=== PATIENT | female | born 1945 | race Caucasian/White ===

== ENCOUNTER 2019-01-07 08:18 | Outpatient (CLI) | payer OTHER, SELFPAY ==
[2019-01-07 09:56] LABS: ALT 20 U/L (12-78); AST 15 U/L (15-37); Albumin 3.4 g/dL (3.4-5.0); Alkaline Phosphatase 89 U/L (46-116); Anion Gap 9.6 mmol/L (3-11); BUN 21 mg/dL (7-18); Bilirubin, Total 0.2 mg/dL (0.2-1.0); CO2 28.4 mmol/L (21.0-32.0); Calcium 8.4 mg/dL (8.5-10.1); Chloride 104 mmol/L (98-107); Cholesterol 178 mg/dL (50-200); Glucose 97 mg/dL (70-100); HDL Cholesterol 48 mg/dL (40-60); LDL CHOLESTEROL 111 mg/dL (<100); Potassium 3.9 mmol/L (3.5-5.1); Sodium 142 mmol/L (136-145); Total Protein 7.1 g/dL (6.4-8.2); Triglyceride 79 mg/dL (30-150)
== END 2019-01-07 08:38 ==
PROVIDERS: PCP Nurse Practitioner Family; Visit Provider Nurse Practitioner Family
DX: E78.5 Hyperlipidemia, unspecified (principal)
CPT/HCPCS: 36415; 80053; 80061; 83721; 83036

== ENCOUNTER 2019-01-13 01:13 | Outpatient (CLI) | payer OTHER, SELFPAY ==
--- NOTE | 2019-01-13 11:30 | DI.MAMMO_ITS ---
SYMPTOMS/DIAGNOSIS: SCREENING, Z12.31 MAMMOGRAM: Mammograms were interpreted according to the usual protocol including computer analysis with CAD system, tomosynthesis and C view imaging. Comparison with prior examinations. Breast density C. No suspicious microcalcifications are seen. No focal masses are appreciated. There are focal asymmetric densities seen. One in the lateral aspect of the left breast on the craniocaudad and one in the posterior inferior aspect of the right breast on the mediolateral oblique view. These areas should be further evaluated with spot compression views. Ultrasound may be indicated at that time. IMPRESSION: Bilateral additional views as described above. Category 0. MQSA ASSESSMENT OF FINDINGS: Incomplete: Needs additional imaging evaluation. Category 0. Patient will receive a letter notifying them of these results. Bi-RADS category C. The breasts are heterogeneously dense, which may obscure small masses.
== END 2019-01-13 01:33 ==
PROVIDERS: PCP Nurse Practitioner Family; Visit Provider Nurse Practitioner Family
DX: Z12.31 Encounter for screening mammogram for malignant neoplasm of breast (principal); R92.8 Other abnormal and inconclusive findings on diagnostic imaging of breast
CPT/HCPCS: 77063; 77067

== ENCOUNTER 2019-01-18 01:21 | Outpatient (CLI) | payer OTHER, SELFPAY ==
--- NOTE | 2019-01-18 13:58 | DI.COMBO_ITS ---
SYMPTOMS/DIAGNOSIS: F/U ABNORMAL MAMMO, FOCAL ASYMMETRIC DENSITIES BILATERALLY ADDITIONAL MAMMOGRAPHIC VIEWS OF BOTH BREASTS AND BILATERAL BREAST ULTRASOUND: CC spot compression film of the left breast and MLO compression spot of the right breast were performed. No discrete nodule or mass is demonstrated on these follow-up images. An ultrasound was carried out. The examination of the left breast is unremarkable with no cyst or mass seen. In the right breast, there is a 5 x 6 x 6 mm area of nodularity demonstrated and is avascular and could well represent a small fibroadenoma. A follow-up right breast ultrasound and mammogram in six months is suggested for further review. SUMMARY: Category 3, breast density category C. MQSA ASSESSMENT OF FINDINGS: Probably benign. Six month follow-up recommended. Category 3. Patient will receive a letter notifying them of these results. Bi-RADS category C. The breasts are heterogeneously dense, which may obscure small masses.
== END 2019-01-18 01:41 ==
PROVIDERS: PCP Nurse Practitioner Family; Visit Provider Nurse Practitioner Family
DX: Z12.31 Encounter for screening mammogram for malignant neoplasm of breast (principal); R92.8 Other abnormal and inconclusive findings on diagnostic imaging of breast
CPT/HCPCS: 76642; 77063; 77067

== ENCOUNTER 2019-07-19 01:10 | Outpatient (CLI) | payer OTHER, SELFPAY ==
--- NOTE | 2019-07-19 10:06 | DI.MAMMO_ITS ---
EXAM: MG MAMMO DIAGNOSTIC UNI CLINICAL HISTORY: 6-MO F/U ABNL RT MAMMO, R92.8 TECHNIQUE: Mammograms were interpreted according to the usual protocol including computer analysis w ith CAD system, tomosynthesis and C-view imaging. COMPARISON: 2009 through 01/18/19. FINDINGS: This is a six-month follow-up from 18 January 2019 for 2 areas of nodularity, seen in the right breast. There are 2 stable areas of nodularity, 1 in the inferior right breast and the other in the superio r right breast more posteriorly. These have been stable over time and have the appearance of normal intra mammary lymph nodes. No new or suspicious findings are seen. IMPRESSION: BI-RADS category 2, negative mammogram with benign findings. Bilateral screening should be resumed in 6 months. BI-RADS Cat 2 - Benign Findings. Breast Density - Category C - Heterogeneously dense.
== END 2019-07-19 01:30 ==
PROVIDERS: PCP Nurse Practitioner Family; Visit Provider Nurse Practitioner Family
DX: Z12.31 Encounter for screening mammogram for malignant neoplasm of breast (principal); R92.8 Other abnormal and inconclusive findings on diagnostic imaging of breast; N60.81 Other benign mammary dysplasias of right breast; R59.0 Localized enlarged lymph nodes
CPT/HCPCS: 77061; 77065; G0279

== ENCOUNTER 2020-02-17 03:26 | Outpatient (CLI) | payer OTHER, SELFPAY ==
[2020-02-17 08:08] LABS: HCT 24.9 % (36.0-46.0); Mean Corp. HGB Concentration 26.5 g/dL (32.0-36.0); Mean Corpuscular Hemoglobin 18.6 pg (27.0-33.0); Mean Corpuscular Volume 70.3 fL (80-95); Mean Platelet Volume 8.5 fL (8.0-11.0); Platelet Count 318 x1000/uL (130-400); RBC 3.54 m/cumm (4.00-5.20); RBC Distribution Width 19.1 % (11.7-14.6); White Blood Cell Count 5.93 k/cumm (4.4-10.8)
[2020-02-17 08:36] LABS: HGB 6.6 g/dL (12.0-15.5)
[2020-02-17 08:41] LABS: Anion Gap 6.9 mmol/L (3-11); BUN 23 mg/dL (7-18); CO2 28.1 mmol/L (21.0-32.0); CREATININE 0.79 mg/dL (0.55-1.02); Calcium 8.7 mg/dL (8.5-10.1); Calculated LDL 81 mg/dL (<100); Chloride 102 mmol/L (98-107); Cholesterol 142 mg/dL (<200); Glucose 102 mg/dL (74-106); HDL Cholesterol 42 mg/dL (40-60); Potassium 4.5 mmol/L (3.5-5.1); Sodium 137 mmol/L (136-145); Triglyceride 97 mg/dL (<150)
[2020-02-17 08:50] LABS: Hemoglobin A1C 5.7 % (3.8-5.6)
[2020-02-17 14:03] LABS: Iron 22 ug/dL (50-170); Total Iron Binding Capacity 419 ug/dL (250-450)
[2020-02-17 14:16] LABS: Ferritin 7 ng/mL (8-252)
[2020-02-20 10:51] LABS: Transferrin 321 mg/dL (201-352)
== END 2020-02-17 03:46 ==
PROVIDERS: PCP Nurse Practitioner Family; Visit Provider Nurse Practitioner Family
DX: R06.00 Dyspnea, unspecified (principal); R73.03 Prediabetes; I10 Essential (primary) hypertension; D64.9 Anemia, unspecified
CPT/HCPCS: 36415; 80048; 80061; 85027; 82728; 83036; 83540; 83550; 84466

== ENCOUNTER 2020-02-21 01:42 | Outpatient (CLI) | payer OTHER, SELFPAY ==
--- NOTE | 2020-02-21 07:15 | DI.DEXA_ITS ---
EXAM: XR DEXA BONE DENSITY W/WO YUNIER CLINICAL HISTORY: osteopenia, last dexa 2011,M85.0,POSTMENOPAUSAL WOMAN,Z78.0 TECHNIQUE: COMPARISON: CR LUMBAR SPINE COMPLETE from 09/22/2012 FINDINGS: DEXA scan was performed according to the usual protocol. Please see the accompanying data sheets. The lateral vertebral scanogram shows minimal wedging of mid thoracic vertebral bodies, this may be o n a developmental basis or may reflect minimal compression fractures. Left hip scanning shows T-score -1.1 with left femoral neck T-score -2.1. Prior study of November 2011 showed left hip T-score -0.9. Lumbar spine scanning shows T-score 1.1. Prior study 2011 shows lumbar T spine score 0.4. Left forearm scanning shows T-score -1.4. Prior study of 29/07 showed forearm T-score -0.3. IMPRESSION: Findings consistent with osteopenia according to the WHO criteria. Lateral vertebral scanogram shows probable minimal anterior compression fractures of midthoracic vertebral bodies.
--- NOTE | 2020-02-21 07:15 | DI.MAMMO_ITS ---
EXAM: MG MAMMO SCREENING CLINICAL HISTORY: screening,Z12.39 TECHNIQUE: Mammograms were interpreted according to the usual protocol including computer analysis w [facility] CAD system, tomosynthesis and C-view imaging. COMPARISON: FINDINGS: Breasts are heterogeneously dense. No dominant mass or clumped microcalcification is identified in e ither breast. The current examination is compared with previous examinations including January 2019 and there has been no gross interval change in appearance comparison with previous studies. IMPRESSION: No specific evidence of malignancy at this time. Routine screening examinations are suggested at yea rly intervals in this age group according to the ACS ACR guidelines. BI-RADS Category 1 - Negative Breast Density - Category C - Heterogeneously dense
--- NOTE | 2020-02-21 10:07 | DI.RAD_ITS ---
EXAM: XR CHEST 2V PA LATERAL CLINICAL HISTORY: SPIVEY x 9mo,R06.00 TECHNIQUE: COMPARISON: No exams were available for comparison FINDINGS: The heart is not enlarged. Note is made of a retrocardiac hiatus hernia lungs are clear. No pleural effusion seen. IMPRESSION: No evidence of acute disease.
--- NOTE | 2020-02-21 10:15 | DI.US_ITS ---
APPROVED REPORT EXAM: Comprehensive 2D, Doppler, and color-flow Echocardiogram Patient Location: Out-Patient Urologist Physician: Deena Lopez RDCS (AE) Indications: SPIVEY, Murmur Other Information Study Quality: Adequate Conclusion Normal left ventricular wall thickness and chamber size. Estimated ejection fraction is 55 to 60%. There are no segmental wall motion abnormalities Normal right ventricular size and function Both atria are normal in size The aortic valve is trileaflet. There is no stenosis or regurgitation Mitral valve is structurally normal. There is mild to moderate mitral regurgitation The tricuspid valve is structurally normal. There is mild tricuspid regurgitation. Estimated right ventricular systolic pressure is 33 mmHg Structurally normal pulmonic valve with mild regurgitation Wall motion Left Ventricle The left ventricle is normal size. The left ventricular systolic function is normal. The left ventric ular ejection fraction is within the normal range. There is normal left ventricular wall thickness. T here is normal LV segmental wall motion. There is no ventricular septal defect visualized. LVEF is 55 %.-60% Right Ventricle The right ventricle is normal size. The right ventricular systolic function is normal. The RVSP is 33 .3mmHg. Atria The left atrium size is normal. The right atrium size is normal. The interatrial septum is intact wit h no evidence for an atrial septal defect. Aortic Valve Aortic valve is trileaflet. There is no aortic valvular stenosis. No aortic regurgitation is present. Mitral Valve The mitral valve is normal in structure. No evidence of mitral valve stenosis. Mild to moderate mayo l regurgitation. Tricuspid Valve The tricuspid valve is normal in structure. There is no tricuspid valve stenosis. Mild tricuspid regu rgitation. Pulmonic Valve The pulmonary valve is normal in structure. There is no pulmonic valvular stenosis. Mild pulmonic reg urgitation. Great Vessels The aortic root is normal in size. The ascending aorta is normal in size. IVC is normal in size and c ollapses >50% with inspiration. Pericardium There is no pericardial effusion. 2D Dimensions IVSD d PLAX 0.73 cm F: 0.6-1.0 LV Vol A2C d MOD 93.7 mL LVPW d PLAX 0.75 cm F: 0.6 - 1.0 LV Vol A4C d MOD 98.2 mL LVID d PLAX 4.71 cm F: 3.8 - 5.2 LA vol/ BSA A2C s A-L 35.5 mL/m2 LVDs 3.05 cm F: 2.2 - 3.5 LA vol/ BSA A4C s A-L 35.8 mL/m2 Ao Root d 2.93 cm F: 2.7 - 3.3 LA Vol/ BSA Biplane s A-L 36.0 mL/m2 RA Area A4C 14.45 cm2 LA Area A4C s MOD 20.59 cm2 RA Vol/ BSA A4C s A-L 17.6 mL/m2 LA Area A2C s MOD 20.33 cm2 Ao Asc Diam d 3.13 cm F: 2.3 - 3.1 LV EF A4C MOD 55.3 % LV EF Teichholz 64.2 % LV EF A2C MOD 56.5 % LVEF (Rogers's) 54.68 % F: 54 - 74 LV EF Biplane MOD 54.7 % LV Volume 75.90 mL F: 46 - 106 SV 52.69 mL LV Volume Index 43.62 mL/m2 F: 29 - 61 SV Index 30.31 mL/m2 LV Vol Biplane MOD 96.4 mL FS 34.90 % M-Mode TAPSE 2.19 cm (M/F) >1.7 LV Diastology MV E' medial 0.079 (>0.07 m/s) E/A Ratio 0.9 LV E/e MED 11.10 (<14) MV E Vmax 0.88 (0.4-1.3 m/s) MV E' lateral 0.095 (>0.1 m/s) MV A Vmax 1.00 (0.4-1.3 m/s) LV E/e LAT 9.25 (<14) MV E/A Ratio 0.85 MV E/E' medial 11.12 MV E/E' lateral 9.27 Aortic Valve LVOT Area 2.91 cm2 AoV Area Vmax 1.74 cm2 LVOT Vmax 1.19 m/s AoV Area/ BSA (Vmax) 1.00 cm2/m2 LVOT Mean William. 0.78 m/s RICKEY Mean William. 1.59 cm2 LVOT Peak Grad 5.7 mmHg RICKEY Mean William. Index 0.92 cm2/m2 LVOT Mean Grad 2.9 mmHg LVOT VTI 0.283 m LVOT Diam s 1.90 cm AoV Vmax 1.99 m/s Velocity Ratio 0.59 AoV Mean William. 1.43 m/s AoV Peak Grad 15.9 mmHg LVOT SV 82.31 mL AoV Mean Grad 9.1 mmHg AoV VTI 0.464 m AoV Area VTI 1.78 cm2 AoV Area/ BSA (VTI) 1.02 cm/m2 Mitral Valve MV DT 203 (160-240 msec) MV PHT 59 msec MV Area PHT 3.74 cm2 Pulmonary Valve PV Vmax 1.06 (0.5-1.5 m/s) RVOT Peak Gr. 3.25 mmHg PV Peak Grad 4.5 mmHg RVOT Mean Gr. 1.95 mmHg PV Mean Grad 2.8 mmHg RVOT VTI 0.197 m PV VTI 0.239 m RVOT Vmax 0.90 m/s Tricuspid Valve TR Peak Grad 30.3 mmHg TR Vmax 2.75 m/s RA Pressure 3.00 mmHg RVSP (TR) 33.3 mmHg
== END 2020-02-21 02:02 ==
PROVIDERS: PCP Nurse Practitioner Family; Visit Provider Nurse Practitioner Family
DX: R06.09 Other forms of dyspnea (principal); R01.1 Cardiac murmur, unspecified; I34.0 Nonrheumatic mitral (valve) insufficiency; I10 Essential (primary) hypertension; R73.03 Prediabetes; M85.88 Other specified disorders of bone density and structure, other site; Z78.0 Asymptomatic menopausal state; Z12.31 Encounter for screening mammogram for malignant neoplasm of breast; K44.9 Diaphragmatic hernia without obstruction or gangrene
CPT/HCPCS: 77063; 77067; 77080; 93306; 71046

== ENCOUNTER 2020-02-21 03:48 | Outpatient (CLI) | payer OTHER, SELFPAY | END 2020-02-21 04:08 | PROVIDERS: PCP Nurse Practitioner Family; Visit Provider Nurse Practitioner Family | DX: R69 Illness, unspecified (principal) | CPT/HCPCS: 36415; 86850; 86900; 86901; 86920; 85025 ==

== ENCOUNTER 2020-02-23 01:43 | Outpatient (RCR) | payer OTHER, SELFPAY ==
[2020-02-21 11:18] LABS: Abs Immature Grans 0.01 k/cumm (0.0-0.09); Absolute Basophil Count 0.02 k/cumm (0.0-0.2); Absolute Eosinophil Count 0.11 k/cumm (0.0-0.7); Absolute Lymphocyte Count 1.19 k/cumm (1.2-3.4); Absolute Monocyte Count 0.36 k/cumm (0.11-0.7); Absolute Neutrophil Count 3.83 k/cumm (1.2-6.7); Basophils % 0.4; HCT 25.6 % (36.0-46.0); Immature Grans % 0.2 %; Lymphocytes % 21.6; Mean Corp. HGB Concentration 26.2 g/dL (32.0-36.0); Mean Corpuscular Hemoglobin 18.5 pg (27.0-33.0); Mean Corpuscular Volume 70.7 fL (80-95); Mean Platelet Volume 8.1 fL (8.0-11.0); Monocytes % 6.5; Neutrophils % 69.3; Platelet Count 315 x1000/uL (130-400); RBC 3.62 m/cumm (4.00-5.20); RBC Distribution Width 19.3 % (11.7-14.6); White Blood Cell Count 5.52 k/cumm (4.4-10.8)
[2020-02-21 11:29] LABS: HGB 6.7 g/dL (12.0-15.5)
[2020-02-21 11:39] LABS: Diff Comment RBC Morph Reviewed
[2020-02-21 11:45] LABS: Anisocytosis 1+; Hypochromasia 3+; Microcytosis 3+; Polychromasia Present
[2020-02-21 11:46] LABS: Poikilocytes 2+
[2020-02-23] VITALS (16 sets, daily range): BP systolic 112–146; BP diastolic 67–78; PULSE 66–80; RESP 18–20; TEMP 36–37; O2SAT 97–100
[2020-02-23] MEDS: Normal Saline Flush 10 ML SYR IVP (08:25)
== END 2020-03-09 23:59 | disposition home or self-care (01) ==
LOC: INF 01:43
PROVIDERS: PCP Nurse Practitioner Family; Visit Provider Nurse Practitioner Family
DX: D50.9 Iron deficiency anemia, unspecified (principal)
CPT/HCPCS: 36415; 36430; 86850; 86900; 86901; 86920; 85025; P9016

== ENCOUNTER 2020-02-29 03:59 | Outpatient (CLI) | payer OTHER, SELFPAY ==
[2020-02-29 16:36] LABS: Abs Immature Grans 0.01 k/cumm (0.0-0.09); Absolute Basophil Count 0.02 k/cumm (0.0-0.2); Absolute Eosinophil Count 0.14 k/cumm (0.0-0.7); Absolute Lymphocyte Count 1.44 k/cumm (1.2-3.4); Absolute Monocyte Count 0.48 k/cumm (0.11-0.7); Absolute Neutrophil Count 4.81 k/cumm (1.2-6.7); Basophils % 0.3; HCT 34.7 % (36.0-46.0); HGB 9.8 g/dL (12.0-15.5); Immature Grans % 0.1 %; Lymphocytes % 20.9; Mean Corp. HGB Concentration 28.2 g/dL (32.0-36.0); Mean Corpuscular Hemoglobin 21.1 pg (27.0-33.0); Mean Corpuscular Volume 74.6 fL (80-95); Mean Platelet Volume 8.9 fL (8.0-11.0); Neutrophils % 69.7; Platelet Count 309 x1000/uL (130-400); RBC 4.65 m/cumm (4.00-5.20); RBC Distribution Width 22.3 % (11.7-14.6)
[2020-02-29 18:07] LABS: Diff Comment RBC Morph Reviewed
[2020-02-29 18:08] LABS: Anisocytosis 3+; Macrocytosis 1+; Microcytosis 2+; Polychromasia Present
[2020-02-29 18:09] LABS: Poikilocytes 1+
[2020-02-29 18:10] LABS: Hypochromasia 1+
== END 2020-02-29 04:19 ==
PROVIDERS: PCP Nurse Practitioner Family; Visit Provider Nurse Practitioner Family
DX: D50.9 Iron deficiency anemia, unspecified (principal)
CPT/HCPCS: 36415; 85025

== ENCOUNTER → 2020-03-12 10:51 | Outpatient (BNVA) | payer OTHER, SELFPAY | PROVIDERS: PCP Nurse Practitioner Family; Referring Provider Nurse Practitioner Family; Visit Provider Surgery | DX: D50.8 Other iron deficiency anemias (principal); I10 Essential (primary) hypertension | CPT/HCPCS: 99202; 99203 ==

== ENCOUNTER 2020-04-23 03:18 | Outpatient (CLI) | payer OTHER, SELFPAY ==
[2020-04-23 11:24] LABS: HCT 42.2 % (36.0-46.0); MCH 27.7 pg (27.0-33.0); MCHC 30.8 % (32.0-36.0); MCV 89.8 fL (80-95); Platelet Count 210 10^3/uL (130-400); RDW-SD 75.7 fL; WBC 7.42 10^3/uL (4.4-10.8)
[2020-04-23 12:24] LABS: Total Iron Binding Capacity 294 ug/dL (250-450)
[2020-04-23 12:38] LABS: Ferritin 41 ng/mL (8-252)
== END 2020-04-23 03:38 ==
PROVIDERS: PCP Nurse Practitioner Family; Visit Provider Nurse Practitioner Family
DX: D50.9 Iron deficiency anemia, unspecified (principal)
CPT/HCPCS: 36415; 85027; 82728; 83550

== ENCOUNTER 2021-01-14 09:29 | Outpatient (CLI) | payer OTHER, SELFPAY ==
[2021-01-14 12:22] LABS: HCT 44.7 % (36.0-46.0); MCH 32.8 pg (27.0-33.0); MCHC 33.6 % (32.0-36.0); MCV 97.8 fL (80-95); MPV 9.8 fL (8.0-11.0); Platelet Count 207 10^3/uL (130-400); RBC 4.57 10^6/uL (3.93-5.22); RDW 12.2 % (11.7-14.6); WBC 5.23 10^3/uL (4.4-10.8)
[2021-01-14 12:29] LABS: Total Iron Binding Capacity 297 ug/dL (250-450)
[2021-01-14 12:34] LABS: Hemoglobin A1C 5.9 % (<5.7)
[2021-01-14 12:46] LABS: Anion Gap 7.6 mmol/L (3-11); BUN 26 mg/dL (7-18); CO2 29.4 mmol/L (21.0-32.0); CREATININE 0.8 mg/dL (0.55-1.02); Calcium 9.8 mg/dL (8.5-10.1); Chloride 106 mmol/L (98-107); Ferritin 69 ng/mL (8-252); Glucose 97 mg/dL (74-106); Potassium 4.4 mmol/L (3.5-5.1); Sodium 143 mmol/L (136-145)
== END 2021-01-14 09:30 | disposition home or self-care (01) ==
PROVIDERS: PCP Nurse Practitioner Family; Referring Provider Nurse Practitioner Family; Visit Provider Nurse Practitioner Family
DX: I10 Essential (primary) hypertension (principal); D50.9 Iron deficiency anemia, unspecified; R73.03 Prediabetes
CPT/HCPCS: 36415; 80048; 85027; 82728; 83036; 83550

== ENCOUNTER 2021-02-21 02:46 | Outpatient (CLI) | payer OTHER, SELFPAY ==
--- NOTE | 2021-02-21 08:20 | DI.MAMMO_ITS ---
Exam(s) MAMMO SCREENING EXAM: MAMMO SCREENING CLINICAL HISTORY: screening,z12.39. TECHNIQUE: Bilateral full field digital CC and MLO mammographic images were obtained with 3D tomosyn thesis and utilizing computer aided detection (CAD). COMPARISON: Prior mammograms dating back to 2011, the most recent being February 2020. FINDINGS: The fibroglandular tissue pattern is moderately dense, this decreasing the sensitivity of the mammogr am for finding in underlying lesions. Multiple noncalcified well-defined nodular densities in the right breast are unchanged from prior owen dies and therefore benign. There are no new spiculated masses nor malignant appearing microcalcification groups. There is no significant architectural distortion nor skin thickening-retraction. IMPRESSION: Stable benign findings. No radiographic evidence of malignancy. BI-RADS Category 2 - Benign Findings Breast Density - Category C - Heterogeneously dense Breast density Category C or D implies that the patient has dense breast tissue. Dense breast tissue can make it harder to find cancer on a mammogram. Dense breast tissue is also associated with an incr eased risk of breast cancer. This information about the result of the mammogram report was provided to the patient to raise their awareness. Use this report when you speak with the patient about their risks for breast cancer, which includes their family history. At that time, you may recommend additional screening tests (Ultrasoun d or MRI) as these tests may add significant information. A negative radiographic report should not delay biopsy if a dominant or clinically suspicious mass is present. Up to ten percent of cancers are not identified on mammography. A negative report may reinforce clinical impression. Adenosis and dense breasts may obscure an underlying neoplasm. False positive reports average 6 to 10%. Patient will receive a letter notifying them of these results.
== END 2021-02-21 03:06 ==
PROVIDERS: PCP Nurse Practitioner Family; Visit Provider Nurse Practitioner Family
DX: Z12.31 Encounter for screening mammogram for malignant neoplasm of breast (principal)
CPT/HCPCS: 77063; 77067

== ENCOUNTER → 2022-03-04 02:58 | Outpatient (CLI) | payer MEDICARE, SELFPAY ==
--- NOTE | 2022-03-04 07:00 | DI.MAMMO_ITS ---
Exam(s) MAMMO SCREENING EXAM: MAMMO SCREENING CLINICAL HISTORY: screening, Z12.39 TECHNIQUE: Bilateral full field digital CC and MLO mammographic images were obtained with 3D tomosyn thesis and utilizing computer aided detection (CAD). COMPARISON: Available for comparison. FINDINGS: Masses/Architectural Distortion: There is a new opacity in the posterior central right breast on the MLO view. Microcalcifications: No suspicious pleomorphic-type are seen. Skin Thickening/Nipple Retraction: None. IMPRESSION: 1. New opacity in the posterior central right breast on the MLO view. 2. Spot compression view and ultrasound are recommended for further evaluation. BI-RADS Category 0 - Assessment Incomplete: Need additional imaging evaluation Breast Density - Category C - Heterogeneously dense Breast density category C or D implies that the patient has dense breast tissue. Dense breast tissue is very common and is not abnormal but dense breast tissue can make it harder to find cancer on a ma mmogram. Also, dense breast tissue may increase their breast cancer risk. This information about the result of the mammogram report was provided to the patient to raise their awareness. Use this report when you speak with the patient about their risks for breast cancer, which includes their family hist ory. At that time, you may recommend for more screening tests (Ultrasound or MRI) as they might be us eful based on their risk. A negative radiographic report should not delay biopsy if a dominant or clinically suspicious mass is present. Up to ten percent of cancers are not identified on mammography. A negative report may reinforce clinical impression. Adenosis and dense breasts may obscure an underlying neoplasm. False positive reports average 6 to 10%. Patient will receive a letter notifying them of these results.
== END ==
PROVIDERS: PCP Nurse Practitioner Family; Visit Provider Nurse Practitioner
DX: Z12.31 Encounter for screening mammogram for malignant neoplasm of breast (principal); R92.8 Other abnormal and inconclusive findings on diagnostic imaging of breast
CPT/HCPCS: 77063; 77067

== ENCOUNTER → 2022-03-10 01:41 | Outpatient (CLI) | payer MEDICARE, SELFPAY ==
--- NOTE | 2022-03-10 | DI.US_ITS ---
Exam(s) MG MAMMO SCREEN CALL BACK UNI US BREAST RT COMPLETE EXAM: MG MAMMO SCREEN CALL BACK UNI CLINICAL HISTORY: F/U MAMMO, NEW OPACITY RT BREAST TECHNIQUE: Mammograms were interpreted according to the usual protocol including computer analysis w ith CAD system, tomosynthesis and C-view imaging. COMPARISON: FINDINGS: Additional mammographic views of the right breast and right breast ultrasound are interpreted in conj unction. These examinations were obtained to evaluate questionable area of nodularity projected in t he central portion of the right breast on MLO view of recent mammogram. Additional mammographic view s fail to show a discrete mass. Breast ultrasound shows no evidence of a mass or cyst. IMPRESSION: No specific evidence of malignancy at this time. Follow-up unilateral right breast mammogram recomme nded in 6 months. BI-RADS Category 3 - 6 month - Probably Benign Finding: Recommend follow-up mammography in 6 months Breast Density - Category B - Scattered areas of fibroglandular density
== END ==
PROVIDERS: PCP Nurse Practitioner Family; Visit Provider Nurse Practitioner
DX: R92.8 Other abnormal and inconclusive findings on diagnostic imaging of breast (principal); Z12.31 Encounter for screening mammogram for malignant neoplasm of breast
CPT/HCPCS: 76642; 77063; 77067

== ENCOUNTER 2022-06-03 02:24 | Outpatient (CLI) | payer MEDICARE, SELFPAY ==
[2022-06-03 08:47] LABS: Anion Gap 8.5 mmol/L (3-11); BUN 21 mg/dL (7-18); CO2 29.5 mmol/L (21.0-32.0); CREATININE 0.7 mg/dL (0.55-1.02); Calcium 9.1 mg/dL (8.5-10.1); Calculated LDL 97 mg/dL (<100); Chloride 104 mmol/L (98-107); Cholesterol 174 mg/dL (<200); Estimated GFR 90.14 (mL/min/1.73m2); Glucose 99 mg/dL (74-106); HDL Cholesterol 54 mg/dL (40-60); Potassium 3.7 mmol/L (3.5-5.1); Sodium 142 mmol/L (136-145); Triglyceride 118 mg/dL (<150)
[2022-06-03 12:22] LABS: Hemoglobin A1C 6.1 % (<5.7)
== END 2022-06-03 02:25 | disposition home or self-care (01) ==
LOC: LBO 02:24
PROVIDERS: PCP Nurse Practitioner Family; Visit Provider Nurse Practitioner
DX: R73.03 Prediabetes (principal); E78.5 Hyperlipidemia, unspecified; I10 Essential (primary) hypertension
CPT/HCPCS: 36415; 80048; 80061; 83036

== ENCOUNTER 2022-07-19 23:09 | Emergency (ER) | payer MEDICARE, SELFPAY ==
--- NOTE | 2022-07-19 23:00 | RT.EKG_ITS ---
APPROVED REPORT Exam: Resting ECG Reason for Exam: chest pain Patient Location: E HR:91 bpm ECG Measurements Heart Rate 91 AXIS [place] 136 P 17 QRSd 80 QRS 47 QT 348 T 49 QTc 428 Conclusion Sinus rhythm...normal P axis, V-rate 60- 99 Physician: no stemi
[2022-07-19 23:14] VITALS: BP 161/85; PULSE 93; RESP 18; TEMP 37; O2SAT 97
--- NOTE | 2022-07-19 23:15 | DI.RAD_ITS ---
Exam(s) XR CHEST 2V PA LATERAL EXAM: XR CHEST 2V PA LATERAL CLINICAL HISTORY: chest pain TECHNIQUE: 2D digital imaging was performed of the chest. Two images were obtained. PA and lateral views were obtained. COMPARISON: CR XR CHEST 2V PA LATERAL from 02/21/2020 FINDINGS: MEDIASTINUM: There is a large hiatal hernia present. HEART: Normal. PULMONARY VASCULATURE: Normal. LUNGS: Clear. PLEURAL SPACE: No pleural effusion or pneumothorax. BONE:Within normal limits for the patient's age. OTHER FINDINGS:Normal. IMPRESSION: 1. No acute pulmonary findings. 2. Large hiatal hernia. Please see the CT scan report of the abdomen and pelvis performed the same d ay. DATA REPOSITORY: RADIATION DOSE DELIVERED:
--- NOTE | 2022-07-19 23:15 | ED.GENADUL_ITS ---
Discharge Plan Discharge Details Chief Complaint: Chest Pain Primary Care Provider: Virgie Johnston ED Provider: Julio Salas Home Meds and New Rx's Prescriptions: No Action aspirin 81 mg tablet,delayed release (DR/EC) 81 mg PO DAILY ferrous sulfate 325 mg (65 mg iron) tablet 325 mg PO DAILY Rx Instructions: Take 1 tablet twice a day with your vitamin c multivitamin [One Daily] 1 EACH tablet 1 tab PO DAILY ascorbic acid (vitamin C) [Vitamin C] 500 MG tablet 500 mg PO DAILY atorvastatin [Lipitor] 10 mg tablet 10 mg PO HS Qty: 90 3RF lisinopril 10 mg tablet 10 mg PO DAILY Qty: 90 0RF hydrochlorothiazide 25 mg tablet 12.5 mg PO QAM Qty: 45 0RF Medical Decision Making This is a 76-year-old female with a past medical history of hypertension, mitral valve regurgitation, hyperlipidemia, anemia, presented to the ER for what she describes as intermittent heartburn and indigestion throughout the day as well as URI-like symptoms over the past several days. Current symptoms 2 out of 10 chest burning. She took a baby aspirin. Tums has not helped. Plan to initiate a cardiac work-up, give an additional 3 baby aspirin, provide 30 cc of Mylanta. Differential includes but not excluded to heartburn, ACS, PE, dissection, flu, COVID, pneumonia, etc. We will also obtain a COVID, flu, RSV swab. This documentation was generated using [employer] dictation system, please disregard any oddities of phrase or misspellings. Medical Records Medical records reviewed: Yes I reviewed the patient's medical records. ECG Data Attestation: I personally reviewed and interpreted this ECG (s) as follows: Interpretation: Sinus rhythm, ventricular 91. No STEMI. Sign Out Yes HPI General Mode of arrival: ambulatory . Date/Time Provider Initiated Documentation: 07/19/22 23:12 . Limitations to Documentation: no limitations . Information obtained by: patient . HPI Narrative: This is a 76-year-old female with a past medical history of hypertension, hy perlipidemia, mitral valve regurgitation, presenting to the ER where she described as chest burning indigestion that has been intermittent since this afternoon. Patient states that this sometimes happens, say every 6 months or so, with overeating and typically 2 times resolve the problem. She states that she did not overeat today and Tums did not help her symptoms. She states that she has burped a couple of times and tasted a sour taste in her mouth. Patient states earlier today she felt a gas bubble in her back but that resolved completely. She denies the pain radiating anywhere. She states that when she walks around upright the symptoms seem to improve a little bit. Patient also reports URI-like symptoms for the past couple of days, mild dry cough, runny nose. She denies headache, fever, shortness of breath, abdominal pain, nausea, vomiting, change in bowel or bladder function, numbness, tingling, weakness, fluid retention, skin rash. She has never had a stress test. She is not a smoker and has never been a smoker. She took a baby aspirin today. Current burning is a 2 out of 10, max today 8 out of 10 Related Data Home Medications Medication Instructions Recorded Confirmed ascorbic acid (vitamin C) 500 mg 500 mg PO DAILY 11/03/12 01/16/22 tablet (Vitamin C) multivitamin (One Daily tablet) 1 tab PO DAILY 11/03/12 01/16/22 aspirin 81 mg tablet,delayed 81 mg PO DAILY 01/15/20 01/16/22 release ferrous sulfate 325 mg (65 mg 325 mg PO DAILY 01/16/22 01/16/22 iron) tablet atorvastatin 10 mg tablet (Lipitor) 10 mg PO HS #90 tab-caps 04/23/22 hydrochlorothiazide 25 mg tablet 12.5 mg PO QAM #45 tabs 04/23/22 lisinopril 10 mg tablet 10 mg PO DAILY #90 tab-caps 04/23/22 Previous Rx's Medication Instructions Recorded atorvastatin 10 mg tablet (Lipitor) 10 mg PO HS #90 tab-caps 04/23/22 hydrochlorothiazide 25 mg tablet 12.5 mg PO QAM #45 tabs 04/23/22 lisinopril 10 mg tablet 10 mg PO DAILY #90 tab-caps 04/23/22 Allergies Allergy/AdvReac Type Severity Reaction Status Date / Time No Known Allergies Allergy Unverified 01/14/21 08:56 Review of Systems Constitutional Constitutional: Denies fatigue, Denies fever(s), Denies headache(s) and Denies weakness ENT Ears, Nose, Mouth, and Throat: Denies headache(s) and Denies neck pain Cardiovascular Cardiovascular: Reports chest pain (Burning) and Denies dyspnea Respiratory Respiratory: Denies cough and Denies dyspnea Gastrointestinal Gastrointestinal: Denies abdominal pain, Denies nausea and Denies vomiting Musculoskeletal Musculoskeletal: Reports back pain and Denies neck pain Integumentary/Breasts Skin/Breast: Denies rash Neurologic Neurologic: Denies headache(s) and Denies weakness Endocrine Endocrine: Denies fatigue Hematologic/Lymphatic Hematologic/Lymphatic: Denies easy bleeding and Denies easy bruising PFSH All Active Problems Osteoarthritis of knees, bilateral (Acute) Mitral valve regurgitation (Chronic) ECHO 2020 Iron deficiency anemia (Acute) Essential hypertension (Chronic) Hyperlipidemia (Chronic) Prediabetes (Chronic) Osteopenia (Chronic) Medical History Abbasi's palsy Surgical History History of bilateral tubal ligation S/P colonoscopy (07/14/16) Family History Mother , 88 Essential hypertension Heart disease Hyperlipidemia Stroke Type 2 diabetes mellitus Dementia Diabetes Father , 89 Essential hypertension Heart disease Type 2 diabetes mellitus Bladder cancer Sister No problems noted. Son No problems noted. Son No problems noted. Maternal Grandfather Heart disease Maternal Grandmother Heart disease Paternal Grandfather Stroke Paternal Grandmother Stroke Heart disease Social History Smoking/Tobacco Use Status: Never Smoking risk assessment performed?: Yes Alcohol Intake: current Alcohol Intake frequency: a few times a month Alcohol type: wine Drug use: Never Substance use type: does not use Caregiver/Support person: No Household members: spouse Housing: house Communication Needs: None Do you need help understanding health information?: Never Pets and animals: Yes Pets and animals: dog(s) Sexually active: Yes Do you think of yourself as: straight/heterosexual Current gender identity: female What is your relationship status?: How often do you talk on the phone with friends or family?: twice per week How often do you get together with friends or relatives?: twice per week How often do you attend hoahaoism or religion services?: 1-3 times per year Do you belong to any clubs or organized social groups?: yes Panel score (0-1 are the most socially isolated patients): 3 Duration: < 15 minutes/day Frequency: 1-2 times per week Leonila/Methodist: Yarsanism Special leonila needs: No Seatbelt use: always Helmet use: No Drive intox or ride w/intox wrecking car driver: No Do you feel safe at home: Yes Do you feel safe in your relationship?: Yes Female Reproductive History Menstrual Menopause type: natural History History 2 Para 2 Hx # Term Pregnancies Multiple births Hx # Pregnancies Ectopic pregnancies AB induced Hx Number of Living Children 2 AB spontaneous Exam Const General: cooperative, healthy appearing, comfortable and no acute distress Orientation: alert, awake and oriented x3 HENMT Head: normal to inspection, normocephalic and atraumatic Face and sinus: normal facial exam Mouth: moist mucous membranes Throat: posterior oropharynx normal Eyes Conjunctivae: conjunctivae normal Neck Neck: normal visual inspection, full ROM, no meningeal signs, trachea midline and supple Resp Effort & Inspection: normal respiratory effort and able to speak in complete sentences Auscultation: clear to auscultation bilaterally Cardio Rate: regular rate Rhythm: regular rhythm GI Palpation: soft, not firm, no guarding, no pulsatile masses and nontender Auscultation: normal bowel sounds Back/Spine/Pelvis Back: no CVA tenderness and No back tenderness Skin General skin exam: no rashes or lesions noted Neuro General: patient alert, patient awake, moves all extremities and no focal motor deficits Cognition: normal cognition Speech: speech normal Gait: normal gait Sensory Exam: no sensory deficits noted Extrem General: normal to inspection, full ROM, capillary refill normal, no pedal edema and no calf tenderness Psych Appearance: grossly normal Mental Status: mental status grossly normal
[2022-07-19 23:41] LABS: Abs Immature Grans 0.03 10^3/uL (0.0-0.06); Absolute Basophil Count 0.03 10^3/uL (0.0-0.2); Absolute Eosinophil Count 0.04 10^3/uL (0.0-0.7); Absolute Monocyte Count 0.73 10^3/uL (0.1-0.8); Absolute Neutrophil Count 7.45 10^3/uL (1.2-6.7); Basophils % 0.3; Eosinophils % 0.4; HCT 46.8 % (36.0-46.0); HGB 15.4 g/dL (11.2-15.7); Immature Grans % 0.3; Lymphocytes % 17.9; MCH 32.2 pg (27.0-33.0); MCHC 32.9 % (32.0-36.0); MCV 98 fL (80-95); MPV 9.3 fL (8.0-11.0); Monocytes % 7.2; Neutrophils % 73.9; Platelet Count 207 10^3/uL (130-400); RBC 4.78 10^6/uL (3.93-5.22); RDW 12.9 % (11.7-14.6); RDW-SD 46.7 fL; WBC 10.08 10^3/uL (4.4-10.8)
[2022-07-19] MEDS: Aspirin 81 MG CHEW 243 MG CH (23:54)
[2022-07-19] MEDS: Mylanta Suspension 30 ML CUP PO (23:55)
[2022-07-19 23:58] LABS: PTT Activated 25.4 sec (21.0-27.5); Prothrombin Time 9.8 sec (9.3-11.0)
[2022-07-20] VITALS (29 sets, daily range): BP systolic 121–138; BP diastolic 64–75; PULSE 74–87; RESP 11–23; O2SAT 92–96
[2022-07-20 00:09] LABS: ALT 41 U/L (14-59); AST 38 U/L (15-37); Alkaline Phosphatase 103 U/L (46-116); Anion Gap 6.9 mmol/L (3-11); BUN 18 mg/dL (7-18); Bilirubin, Total 0.4 mg/dL (0.2-1.0); CO2 32.1 mmol/L (21.0-32.0); CREATININE 0.8 mg/dL (0.55-1.02); Calcium 10.1 mg/dL (8.5-10.1); Chloride 98 mmol/L (98-107); Estimated GFR 76.79 (mL/min/1.73m2); Glucose 138 mg/dL (74-106); Magnesium 1.8 mg/dL (1.8-2.4); Potassium 3.3 mmol/L (3.5-5.1); Sodium 137 mmol/L (136-145); Total Protein 8.8 g/dL (6.4-8.2); Troponin I < 50 ng/L (<or=60)
[2022-07-20 00:21] LABS: D-Dimer 565 ng/mlFEU (<500)
[2022-07-20 00:22] LABS: Influenza A PCR Negative (Negative); Influenza B PCR Negative (Negative); RSV PCR Negative (Negative); Source Nasopharynx
[2022-07-20 00:24] LABS: COVID-19 PCR Positive (Negative)
--- NOTE | 2022-07-20 00:30 | DI.CT_ITS ---
Exam(s) CT CHEST PE CTA EXAM: CT CHEST PE CTA CLINICAL HISTORY: elevated dimer, eval for clot. also volvulus. TECHNIQUE: Imaging Protocol: Axial CT angiography was performed with multi-slice acquisition and mu lti-planar and/or 3D reconstructions. CONTRAST MATERIAL: Intravenous: For 1 contrast volume:100 mL COMPARISON: CR,XR XR CHEST 2V PA LATERAL from 07/19/2022 FINDINGS: Tracheobronchial tree: Patent where visualized. Pulmonary parenchyma: No consolidation or dominant measurable mass. No architectural distortion. Ther e is atelectasis or scarring in the left lung base. Pulmonary Arteries: No evidence of filling defect to suggest pulmonary emboli. Mediastinum and Lin: No dominant adenopathy or fluid collection. The esophagus is unremarkable. Th ere is a large hiatal hernia. Visualized thyroid gland: Unremarkable. Pleura: No effusion or pneumothorax. Heart: The heart is not dilated. No coronary artery calcifications are seen. No pericardial effusion. Aorta: Thoracic aorta non-dilated. No evidence of dissection. Atherosclerosis is present. Upper abdomen: Please see the CT abdominal pelvic report for complete details. Soft tissues: Unremarkable. Bones: Within normal limits for the patient's age. IMPRESSION: 1. No evidence of pulmonary embolism, thoracic aortic dissection or aneurysm. 2. There is compressive atelectasis in the left lower lobe likely secondary to the large hiatal herni a. 3. Large hiatal hernia without evidence of obstruction. RADIATION DOSE DELIVERED: Total DLP DATA REPOSITORY: All CT scans at this facility are submitted to the National Radiology Data Registry (NRDR) Dose Index Registry (DIR) with the [employer] (ACR). RADIATION OPTIMIZATION: All CT scans at this facility use at least one of these dose optimization te chniques: automated exposure control; mA and/or kV adjustment per patient size (includes targeted exa ms where dose is matched to clinical indication); or iterative reconstruction.
--- NOTE | 2022-07-20 00:30 | DI.CT_ITS ---
Exam(s) CT ABDOMEN PELVIS W EXAM: CT ABDOMEN PELVIS W CLINICAL HISTORY: elevated dimer, eval for clot. also volvulus TECHNIQUE: Imaging Protocol: Axial computed tomography images with coronal and sagittal reformatted images were created and reviewed CONTRAST MATERIAL: Intravenous: Omnipaque 350 Contrast volume:structured data in ml mL Oral: Yes COMPARISON: No exams were available for comparison FINDINGS: ABDOMEN: Lung Bases: There is a large hiatal hernia. There is an infiltrate seen in the left lower lobe. Thi s may represent scarring or atelectasis. Liver: Normal density. No measurable mass. Portal, Superior Mesenteric, and Splenic Veins: Unremarkable. Gallbladder and Biliary Tract: No radiodense calculus or dilation. Pancreas: Normal density, no abnormal calcifications or inflammatory process. Spleen: Normal. Adrenals: No masses seen. Kidneys: Normal size, contour and axis. There are bilateral nonobstructing renal stones. Bilateral s imple renal cysts. No follow-up is recommended. No suspicious renal masses. Abdominal Aorta: Abdominal portion non-dilated. Atherosclerosis is present. Bowel: No obstruction or bowel wall thickening. Appendix is unremarkable. There is diverticulosis of the colon but no evidence of acute diverticulitis. Peritoneal Cavity: No ascites, collection or mesenteric inflammatory response. No free air. Lymph Nodes: Within normal limits. Bones: Within normal limits for the patient's age. Soft Tissues: Unremarkable. PELVIS: Bladder: Symmetric distention, no gross wall thickening. Reproductive Organs: Unremarkable as visualized. A pessary is in place. Lymph Nodes: Within normal limits. Bones: Within normal limits for the patient's age. IMPRESSION: 1. No acute abdominal or pelvic process. 2. Nonacute findings in the abdomen and pelvis as described above. RADIATION DOSE DELIVERED: 1342.23 mGy.cm Total DLP DATA REPOSITORY: All CT scans at this facility are submitted to the National Radiology Data Registry (NRDR) Dose Index Registry (DIR) with the [employer] (ACR). RADIATION OPTIMIZATION: All CT scans at this facility use at least one of these dose optimization te chniques: automated exposure control; mA and/or kV adjustment per patient size (includes targeted exa ms where dose is matched to clinical indication); or iterative reconstruction.
--- NOTE | 2022-07-20 00:35 | DI.VRAD_ITS ---
Addendum created by Luis Coelho MD on 07/20/2022 12:38:24 AM EST: THIS REPORT CONTAINS FINDINGS THAT MAY BE CRITICAL TO PATIENT CARE. The findings were verbally communicated via telephone conference with Dr. Quikc at 12:37 AM EST on 07/20/2022. The findings were acknowledged and understood. Initial report created on 07/20/2022 12:34:50 AM EST: PROCEDURE INFORMATION: Exam: XR Chest Exam date and time: 07/19/2022 11:34 PM Age: 76 years old Clinical indication: Other: Chest pain TECHNIQUE: Imaging protocol: Radiologic exam of the chest. Views: 2 views. COMPARISON: CR XR CHEST 2V PA LATERAL 02/21/2020 10:04 AM FINDINGS: Tubes, catheters and devices: EKG monitoring leads overlie the thoracic wall. Lungs: There is no evidence of focal pulmonary consolidation. Pleural spaces: No evidence of pleural effusion, pneumothorax or pneumomediastinum. Heart/Mediastinum: Large hiatal hernia with marked distention and air-fluid level. Bones/joints: No acute fracture is identified. IMPRESSION: Hiatal hernia containing a markedly distended stomach with an air-fluid level. Consider correlation with CT scan of the chest, abdomen pelvis to evaluate for possible gastric volvulus. Dictated and Authenticated by: Luis Coelho MD. Ordering:ANEL Kim MD
[2022-07-20] MEDS: Breeza Beverage 473 ML BTL PO (01:32)
[2022-07-20] MEDS: Normal Saline - Diluent 50 ML VIAL IV (01:33)
[2022-07-20] MEDS: Omnipaque 350 MG/ML 100 ML BTL IJ (01:33)
[2022-07-20 03:33] LABS: Troponin I < 50 ng/L (<or=60)
--- NOTE | 2022-07-20 03:36 | DI.VRAD_ITS ---
PROCEDURE INFORMATION: Exam: CTA Chest With Contrast Exam date and time: 07/20/2022 1:34 AM Age: 76 years old Clinical indication: Other: Elevated ddimer eval for clot also volvulus TECHNIQUE: Imaging protocol: Computed tomographic angiography of the chest with contrast. 3D rendering (Not supervised by radiologist): MIP and/or 3D reconstructed images were created by the technologist. Radiation optimization: All CT scans at this facility use at least one of these dose optimization techniques: automated exposure control; mA and/or kV adjustment per patient size (includes targeted exams where dose is matched to clinical indication); or iterative reconstruction. Contrast material: 350; Contrast volume: 100 ml; Contrast route: INTRAVENOUS (IV); COMPARISON: XR CHEST 2V PA LATERAL 07/19/2022 11:34 PM FINDINGS: Pulmonary arteries: There are no filling defects in the pulmonary arteries to suggest pulmonary emboli. Aorta: There is no thoracic aortic aneurysm or dissection. Lungs: There are faint diffuse ground-glass opacities and mosaic attenuation of the lung parenchyma as may be seen in small airways disease. There is no evidence of focal pulmonary consolidation. Pleural spaces: No pleural effusion or pneumothorax. Heart: The heart is normal in size. There are no pericardial fluid collections. Mediastinal space: There is a large complex (sliding and paraesophageal) hiatal hernia with most of the stomach in the thoracic cavity. Since the comparison PA and lateral views of the chest, there has been some decompression of the stomach without evidence of any nasogastric tube. The ingested oral contrast has entered and mostly exited the herniated stomach without evidence of obstruction. Only a small amount of dilute contrast remains within the gastric lumen. There is no evidence of gastric volvulus. Lymph nodes: No enlarged mediastinal or hilar lymph nodes are seen. Diaphragm: There are atelectatic changes in the left lower lobe secondary to compression by the hiatal hernia. Bones/joints: There is diffuse osseous demineralization. There is multilevel degenerative disc disease and vacuum disc. There is accentuation of the thoracic kyphosis. There is chronic appearing superior endplate compression fracture of T3. Soft tissues: Unremarkable. IMPRESSION: 1. No evidence of pulmonary embolus. 2. A large hiatal hernia without obstruction or volvulus. 3. These pulmonary findings may be secondary to small airways disease. Infectious pneumonitis may present a similar picture. 4. The lower lobe compression atelectasis secondary to the presence of a large hiatal hernia. Dictated and Authenticated by: Luis Coelho MD. Ordering:NAS Hubbard MD
--- NOTE | 2022-07-20 04:07 | ED.PROG_ITS ---
Date of service: 07/20/22 Time of Service: 04:07 Medical Decision Making Case was signed out to me by my colleague Julio Salas. Please refer to his HPI, physical exam, assessment and plan. At time of signout we are awaiting imaging labs and reassessment. Laboratory work-up has returned, no white count bandemia . Electrolytes stable, potassium minimally low at 3.3. D-dimer minimally elevated at 565 which can be age adjusted for normal. Troponin normal, COVID test is positive, and upon discussion of this with the patient she states that she has had mild runny nose and congestion for the last few days but seems to be on the mend and is feeling much better. On reassessment her chest pain is completely resolved after GI cocktail. EKG and and both initial and repeat troponin are normal/stable. Chest x-ray showed what appeared to be a very large hiatal hernia which was likely the cause of her symptoms, but on chest x-ray there was concern for potential volvulus. Radiology recommended CT. CTA of the chest was performed, negative for any volvulus or pulmonary embolism or significant abnormality acutely. CT abdomen stable. With the patient's notable stabilization of her symptoms, and her symptoms being clinically inconsistent with ACS PE or dissection, I do feel that the patient is stable for discharge. Patient and significant other at bedside have no other questions concerns or complaints at this time. They are comfortable with plan. I have extensively reviewed the treatment plan and discharge instructions with the patient and their family. I have addressed all patient concerns at this time. The patient and family was made aware of what symptoms to monitor for that would warrant a return to the emergency department. Discussed the plan with the patient and family, they demonstrate verbal understanding and agreement with our assessment and plan at this time. The documentation in this chart was dictated using [employer] dictation software. Please excuse any dictation errors. FINDINGS: Tubes, catheters and devices: EKG monitoring leads overlie the thoracic wall. Lungs: There is no evidence of focal pulmonary consolidation. Pleural spaces: No evidence of pleural effusion, pneumothorax or pneumomediastinum. Heart/Mediastinum: Large hiatal hernia with marked distention and air-fluid level. Bones/joints: No acute fracture is identified. IMPRESSION: Hiatal hernia containing a markedly distended stomach with an air-fluid level. Consider correlation with CT scan of the chest, abdomen pelvis to evaluate for possible gastric volvulus. Thank you for allowing us to participate in the care of your patient. Dictated and Authenticated by: Luis Coelho, FINDINGS: Pulmonary arteries: There are no filling defects in the pulmonary arteries to suggest pulmonary emboli. Aorta: There is no thoracic aortic aneurysm or dissection. Lungs: There are faint diffuse ground-glass opacities and mosaic attenuation of the lung parenchyma as may be seen in small airways disease. There is no evidence of focal pulmonary consolidation. Pleural spaces: No pleural effusion or pneumothorax. Heart: The heart is normal in size. There are no pericardial fluid collections. Mediastinal space: There is a large complex (sliding and paraesophageal) hiatal hernia with most of the stomach in the thoracic cavity. Since the comparison PA and lateral views of the chest, there has been some decompression of the stomach without evidence of any nasogastric tube. The ingested oral contrast has entered and mostly exited the herniated stomach without evidence of obstruction. Only a small amount of dilute contrast remains within the gastric lumen. There is no evidence of gastric volvulus. Lymph nodes: No enlarged mediastinal or hilar lymph nodes are seen. Diaphragm: There are atelectatic changes in the left lower lobe secondary to compression by the hiatal hernia. Bones/joints: There is diffuse osseous demineralization. There is multilevel degenerative disc disease and vacuum disc. There is accentuation of the thoracic kyphosis. There is chronic appearing superior endplate compression fracture of T3. Soft tissues: Unremarkable. IMPRESSION: 1. No evidence of pulmonary embolus. 2. A large hiatal hernia without obstruction or volvulus. 3. These pulmonary findings may be secondary to small airways disease. Infectious pneumonitis may present a similar picture. 4. The lower lobe compression atelectasis secondary to the presence of a large hiatal hernia. Thank you for allowing us to participate in the care of your patient. Dictated and Authenticated by: Luis Coelho MD 07/20/2022 3:35 AM Eastern Time ([place] & [place]) FINDINGS: Tubes, catheters and devices: A pessary is seen in place. Lungs: No consolidation in the visualized lung bases. Liver: No hepatomegaly. There are no enhancing liver masses. Gallbladder and bile ducts: No calcified stones. No ductal dilation. Pancreas: Normal in size and homogeneous enhancement. No ductal dilation. Spleen: Normal. No splenomegaly. Adrenal glands: Normal. No mass. Kidneys and ureters: There is no hydronephrosis. There are multiple bilateral punctate nonobstructive renal calculi, the largest measuring 3 mm. Multiple bilateral renal cysts are present as large as 2.2 cm. Additionally, there are some bilateral hypodensities, too small to characterize but likely cysts. Stomach and bowel: There is a large complex (sliding and paraesophageal) hiatal hernia containing most of the stomach. The stomach shows no evidence of obstruction or volvulus. At the time of the examination, most of the ingested oral contrast has passed into the small bowel and colon. There is no evidence of small bowel or colonic obstruction. There are diverticula scattered throughout the entire colon without evidence of acute diverticulitis. Appendix: No evidence of appendicitis. Intraperitoneal space: No free air. No significant fluid collection. Vasculature: There is moderate atherosclerotic calcification of the abdominal aorta and its branches without aneurysm. Lymph nodes: No enlarged retroperitoneal or mesenteric lymph nodes. Urinary bladder: The bladder shows a normal contour and is free of calcific opacities. Reproductive: Unremarkable as visualized. Bones/joints: Diffuse osseous demineralization. There is mild levoconvex lumbar rotoscoliosis. There is multilevel degenerative disc disease, vacuum disc and facet arthrosis. Multilevel posterior hypertrophic bony changes are present. Soft tissues: Normal. IMPRESSION: 1. A large hiatal hernia without obstruction or volvulus. 2. Multiple punctate nonobstructive renal calculi. 3. Multiple bilateral renal cysts and hypodensities, too small to characterize. 4. Diffuse diverticulosis throughout the entire colon without acute diverticulitis. 5. Multilevel degenerative disc disease, facet arthrosis and posterior hypertrophic changes of the spine. Thank you for allowing us to participate in the care of your patient. Dictated and Authenticated by: Luis Coelho MD 07/20/2022 4:11 AM Eastern Time ([place] & [place]) Sign Out No Sign Out Sign Out Data: Sign Out Comment: Mild URI-like symptoms since Thursday. Heartburn that began early afternoon. Denies cardiac history. Patient had already taken 1 baby aspirin and 2 times today. Given additional 3 baby aspirin, 30 cc Mylanta, and initiated a cardiac work-up including a D-dimer. Last updated by Julio Salas PA at 07/19/22 23:54 Discharge Plan Disposition Patient Disposition: Home Condition: Good Discharge Details Chief Complaint: Chest Pain Clinical Impression: Hernia, hiatal, Epigastric burning sensation Primary Care Provider: Virgie Johnston ED Provider: Stevie Quick Home Meds and New Rx's Prescriptions: No Action aspirin 81 mg tablet,delayed release (DR/EC) 81 mg PO DAILY ferrous sulfate 325 mg (65 mg iron) tablet 325 mg PO DAILY Rx Instructions: Take 1 tablet twice a day with your vitamin c multivitamin [One Daily] 1 EACH tablet 1 tab PO DAILY ascorbic acid (vitamin C) [Vitamin C] 500 MG tablet 500 mg PO DAILY atorvastatin [Lipitor] 10 mg tablet 10 mg PO HS Qty: 90 3RF lisinopril 10 mg tablet 10 mg PO DAILY Qty: 90 0RF hydrochlorothiazide 25 mg tablet 12.5 mg PO QAM Qty: 45 0RF Discharge Instructions Instructions: GERD (Gastroesophageal Reflux Disease) (ED) Additional Instructions: Your laboratory work-up has returned and there is no evidence of heart abnormality currently. You do have a large hiatal hernia which is likely a component of what is causing your symptoms. Please avoid any spicy or tomato- based foods. Please take Tums daily, and take Maalox or Pepto-Bismol if your symptoms recur. If you notice any worsening of your symptoms, or any new symptoms such as vomiting, diarrhea, fever, chills, shortness of breath, chest pain, numbness, weakness, or fainting , please return immediately to the emergency department for reevaluation. Please follow up with your primary care provider as soon as possible for reassessment and reevaluation. As always, it was a pleasure participating in your medical care today. Referrals: Virgie Johnston, DANICA [Primary Care Provider] -
--- NOTE | 2022-07-20 04:12 | DI.VRAD_ITS ---
PROCEDURE INFORMATION: Exam: CT Abdomen And Pelvis With Contrast Exam date and time: 07/20/2022 1:34 AM Age: 76 years old Clinical indication: Other: Elevated ddimer eval for clot and also volvulus TECHNIQUE: Imaging protocol: Computed tomography of the abdomen and pelvis with contrast. COMPARISON: XR CHEST 2V PA LATERAL 07/19/2022 11:34 PM FINDINGS: Tubes, catheters and devices: A pessary is seen in place. Lungs: No consolidation in the visualized lung bases. Liver: No hepatomegaly. There are no enhancing liver masses. Gallbladder and bile ducts: No calcified stones. No ductal dilation. Pancreas: Normal in size and homogeneous enhancement. No ductal dilation. Spleen: Normal. No splenomegaly. Adrenal glands: Normal. No mass. Kidneys and ureters: There is no hydronephrosis. There are multiple bilateral punctate nonobstructive renal calculi, the largest measuring 3 mm. Multiple bilateral renal cysts are present as large as 2.2 cm. Additionally, there are some bilateral hypodensities, too small to characterize but likely cysts. Stomach and bowel: There is a large complex (sliding and paraesophageal) hiatal hernia containing most of the stomach. The stomach shows no evidence of obstruction or volvulus. At the time of the examination, most of the ingested oral contrast has passed into the small bowel and colon. There is no evidence of small bowel or colonic obstruction. There are diverticula scattered throughout the entire colon without evidence of acute diverticulitis. Appendix: No evidence of appendicitis. Intraperitoneal space: No free air. No significant fluid collection. Vasculature: There is moderate atherosclerotic calcification of the abdominal aorta and its branches without aneurysm. Lymph nodes: No enlarged retroperitoneal or mesenteric lymph nodes. Urinary bladder: The bladder shows a normal contour and is free of calcific opacities. Reproductive: Unremarkable as visualized. Bones/joints: Diffuse osseous demineralization. There is mild levoconvex lumbar rotoscoliosis. There is multilevel degenerative disc disease, vacuum disc and facet arthrosis. Multilevel posterior hypertrophic bony changes are present. Soft tissues: Normal. IMPRESSION: 1. A large hiatal hernia without obstruction or volvulus. 2. Multiple punctate nonobstructive renal calculi. 3. Multiple bilateral renal cysts and hypodensities, too small to characterize. 4. Diffuse diverticulosis throughout the entire colon without acute diverticulitis. 5. Multilevel degenerative disc disease, facet arthrosis and posterior hypertrophic changes of the spine. Dictated and Authenticated by: Luis Coelho MD. Ordering:NAS Hubbard MD
== END 2022-07-20 04:21 | disposition home or self-care (01) ==
PROVIDERS: Physician Assistant; Emergency Provider Student in an Organized Health Care Education/Training Program; PCP Nurse Practitioner Family
DX: K44.9 Diaphragmatic hernia without obstruction or gangrene (principal); U07.1 COVID-19; I10 Essential (primary) hypertension; E78.5 Hyperlipidemia, unspecified; R79.89 Other specified abnormal findings of blood chemistry; E87.6 Hypokalemia; R07.89 Other chest pain
CPT/HCPCS: 36415; 71275; 80053; 87637; 93005; 99285; 71046; 74177; 83735; 84484; 85025; 85379; 85610; 85730; 93010; J3490

== ENCOUNTER 2022-09-10 02:43 | Outpatient (CLI) | payer MEDICARE, SELFPAY ==
--- NOTE | 2022-09-10 08:00 | DI.US_ITS ---
Exam(s) MG MAMMO DIAGNOSTIC UNI US BREAST RT LIMITED EXAM: MG MAMMO DIAGNOSTIC UNI CLINICAL HISTORY: 3-6 mo f/u. COMPARISON: US US BREAST RT LIMITED from 09/10/2022 TECHNIQUE: Craniocaudal and mediolateral oblique Full Field Digital Mammography views of the right b reast with Computer Aided Diagnosis followed by Tomosynthesis and right breast ultrasound. Additiona l spot compression MLO view of the right breast with tomosynthesis performed. FINDINGS: Mammography/Tomosynthesis: Masses/Architectural Distortion: Persistent low-density nodule, having the appearance of an intramamm dorothy lymph node. Microcalcifications: No suspicious pleomorphic-type are seen. Skin Thickening/Nipple Retraction: None. Right breast US: Echotexture: Normal appearance of the glandular tissue. Shadowing: No suspicious foci. Cyst: None. Solid lesions: Smoothly marginated hypoechoic nodule seen in 6 o'clock position 3 cm from the nipple measuring 7 millimeters in greatest dimension. This is nodule is seen on mammogram and has been stab le over many years. In the 8 o'clock position, 3 cm from the nipple, there is a lobulated nodule wit h central fatty hilum, consistent with an intramammary lymph node. Ductal dilation: None. IMPRESSION: 1. No evidence of malignancy is noted. 2. Recommend bilateral mammogram in 6 months. BI-RADS Category 3 - Probably Benign Finding: Recommend follow-up mammography in 3 months Breast Density - Category B - Scattered areas of fibroglandular density A negative radiographic report should not delay biopsy if a dominant or clinically suspicious mass is present. Up to ten percent of cancers are not identified on mammography. A negative report may reinforce clinical impression. Adenosis and dense breasts may obscure an underlying neoplasm. False positive reports average 6 to 10%. Patient will receive a letter notifying them of these results.
== END 2022-09-10 03:03 ==
PROVIDERS: PCP Nurse Practitioner Family; Visit Provider Nurse Practitioner
DX: R92.8 Other abnormal and inconclusive findings on diagnostic imaging of breast; N63.15 Unspecified lump in the right breast, overlapping quadrants; N63.13 Unspecified lump in the right breast, lower outer quadrant
CPT/HCPCS: 76642; 77061; 77065; G0279

== ENCOUNTER 2023-01-30 01:08 | Outpatient (CLI) | payer MEDICARE, SELFPAY ==
--- NOTE | 2023-01-30 07:15 | DI.RAD_ITS ---
Exam(s) XR KNEE LT 3V AP,LAT,DIEGO EXAM: XR KNEE LT 3V AP,LAT,DIEGO CLINICAL HISTORY: arthritis pain, OSTEOARTHRITIS KNEES JOSEPH, M17.0. TECHNIQUE: 2D digital imaging was performed of the left knee. Three images were obtained. AP, late ral and PA tunnel views were obtained. COMPARISON: There are no priors for comparison. FINDINGS: BONES: No acute fracture is present. No bony destructive lesion is seen. JOINTS: There is marked narrowing of the medial femoral tibial and patellofemoral joints. Osteophyte s are seen in all 3 joint compartments. There is a small joint effusion. SOFT TISSUE: Atherosclerosis is present. IMPRESSION: Severe osteoarthritis. DATA REPOSITORY: RADIATION DOSE DELIVERED:
--- NOTE | 2023-01-30 07:15 | DI.RAD_ITS ---
Exam(s) XR KNEE RT 3V AP,LAT,DIEGO EXAM: XR KNEE RT 3V AP,LAT,DIEGO CLINICAL HISTORY: arthritis pain, OSTEOARTHRITIS KNEES JOSEPH, M17.0. TECHNIQUE: 2D digital imaging was performed of the right knee. Four views obtained. AP, lateral and PA tunnel views were obtained. COMPARISON: CR,XR XR CHEST 2V PA LATERAL from 07/19/2022 FINDINGS: BONES: No acute fracture is present. No bony destructive lesion is seen. There is a small enthesophyt e at the superior patella. JOINTS: There is marked narrowing of the medial femoral tibial joint. There are osteophytes in all 3 joint compartments. No significant joint effusion. SOFT TISSUE: Atherosclerosis is present. IMPRESSION: Osteoarthritis of the knee. DATA REPOSITORY: RADIATION DOSE DELIVERED:
== END 2023-01-30 01:28 ==
LOC: DI 01:09
PROVIDERS: PCP Nurse Practitioner Family; Visit Provider Nurse Practitioner Family
DX: M17.0 Bilateral primary osteoarthritis of knee (principal)
CPT/HCPCS: 73562

== ENCOUNTER 2023-02-27 14:53 | Outpatient (CLI) | payer MEDICARE, SELFPAY ==
[2023-02-27 12:01] LABS: Hemoglobin A1C 5.6 % (<5.7)
[2023-02-27 12:24] LABS: Anion Gap 5.9 mmol/L (3-11); BUN 22 mg/dL (7-18); CO2 29.1 mmol/L (21.0-32.0); CREATININE 0.7 mg/dL (0.55-1.02); Calcium 9.3 mg/dL (8.5-10.1); Chloride 109 mmol/L (98-107); Estimated GFR 89.58 (mL/min/1.73m2); Glucose 86 mg/dL (74-106); Potassium 4.2 mmol/L (3.5-5.1); Sodium 144 mmol/L (136-145)
== END 2023-02-27 14:54 | disposition home or self-care (01) ==
LOC: LBO 14:53
PROVIDERS: PCP Nurse Practitioner Family; Visit Provider Nurse Practitioner Family
DX: I10 Essential (primary) hypertension (principal); R73.03 Prediabetes; Z00.00 Encounter for general adult medical examination without abnormal findings; E78.5 Hyperlipidemia, unspecified
CPT/HCPCS: 36415; 80048; 83036

== ENCOUNTER 2023-03-19 01:41 | Outpatient (CLI) | payer MEDICARE, SELFPAY ==
--- NOTE | 2023-03-19 06:33 | DI.DEXA_ITS ---
Exam(s) XR DEXA BONE DENSITY W/WO YUNIER EXAM: XR DEXA BONE DENSITY W/WO YUNIER CLINICAL HISTORY: osteopenia,SCREENING FOR OSTEOPOROSIS, Z78.0 TECHNIQUE: COMPARISON: CR XR DEXA BONE DENSITY W/WO YUNIER from 02/21/2020 FINDINGS: Lateral Spine Image: Unremarkable. No compression deformities identified. Left hip: Total T-Score: -1.4. This compares to -1.1 on the prior examination. Total Z-Score: 0.4 T- and Z-scores: Findings are consistent with osteopenia. There is osteoporosis in the femoral neck with a T-score of -2.5. Lumbar Spine: Total T-Score: 0.8. This compares to 1.1 on the prior examination. Total Z-Score: 3.3 T- and Z-scores: Within normal limits. IMPRESSION: Osteoporosis is seen in the femoral neck.
== END 2023-03-19 02:01 ==
LOC: DI 01:41
PROVIDERS: PCP Nurse Practitioner Family; Visit Provider Nurse Practitioner Family
DX: Z13.820 Encounter for screening for osteoporosis (principal); Z78.0 Asymptomatic menopausal state; M81.0 Age-related osteoporosis without current pathological fracture; Z12.31 Encounter for screening mammogram for malignant neoplasm of breast
CPT/HCPCS: 77080

== ENCOUNTER → 2023-03-23 02:39 | Outpatient (CLI) | payer MEDICARE, SELFPAY ==
--- NOTE | 2023-03-23 08:00 | DI.MAMMO_ITS ---
Exam(s) MAMMO DIAGNOSTIC BI EXAM: MAMMO DIAGNOSTIC BI CLINICAL HISTORY: 6mo abnormal mammo f/u,R92.8. TECHNIQUE: Both CC and MLO bilateral mammographic images were obtained with 3D tomosynthesis technShinyByte ue and utilizing computer aided detection (CAD). COMPARISON: Prior mammograms were reviewed, the most recent being 10/02. Prior ultrasounds were reviewed. FINDINGS: There are no new findings in the left breast. In the right breast previously described 2 nodular densities are again noted. These remain stable in size and appearance. No new nodules nor malignant-appearing microcalcification groups in either breast. There is no new significant architectural distortion or skin thickening-traction. IMPRESSION: 1. No radiographic evidence of malignancy in left breast. 2. Stable benign-appearing 2 right breast nodules. 3. Appropriate follow-up is to keep this patient on a yearly mammogram schedule, with earlier imaging if a self detected breast change is noted. The patient was informed of the findings and follow-up recommendations myself prior to leaving the nd partment today. BI-RADS Category 2 - Benign Findings Breast Density - Category B - Scattered areas of fibroglandular density Breast density Category C or D implies that the patient has dense breast tissue. Dense breast tissue can make it harder to find cancer on a mammogram. Dense breast tissue is also associated with an incr eased risk of breast cancer. This information about the result of the mammogram report was provided to the patient to raise their awareness. Use this report when you speak with the patient about their risks for breast cancer, which includes their family history. At that time, you may recommend additional screening tests (Ultrasoun d or MRI) as these tests may add significant information. A negative radiographic report should not delay biopsy if a dominant or clinically suspicious mass is present. Up to ten percent of cancers are not identified on mammography. A negative report may reinforce clinical impression. Adenosis and dense breasts may obscure an underlying neoplasm. False positive reports average 6 to 10%. Patient will receive a letter notifying them of these results.
== END ==
PROVIDERS: PCP Nurse Practitioner Family; Visit Provider Nurse Practitioner Family
DX: R92.8 Other abnormal and inconclusive findings on diagnostic imaging of breast (principal); Z12.31 Encounter for screening mammogram for malignant neoplasm of breast
CPT/HCPCS: 77062; 77066; G0279

== ENCOUNTER → 2023-04-09 12:58 | Outpatient (BNVA) | payer MEDICARE, SELFPAY | PROVIDERS: PCP Nurse Practitioner Family; Referring Provider Nurse Practitioner Family; Visit Provider Physical Therapy Assistant | DX: R13.10 Dysphagia, unspecified (principal) | CPT/HCPCS: 99213 ==

== ENCOUNTER → 2023-04-28 03:01 | Outpatient (CLI) | payer MEDICARE, SELFPAY ==
--- NOTE | 2023-04-28 07:45 | DI.US_ITS ---
APPROVED REPORT EXAM: Comprehensive 2D, Doppler, and color-flow Echocardiogram Patient Location: Out-Patient Exceptional Needs Teacher: Deena Lopez RDCS (AE) Indications: Murmur, H/O mild to moderate mitral regurgitation, HTN Other Information Study Quality: Good Conclusion Normal left ventricular wall thickness and chamber size. Ejection fraction is 60%. Wall motion is n ormal Normal right ventricular size and systolic function Both atria are normal in size Trileaflet aortic valve without stenosis or regurgitation Normal mitral valve with mild regurgitation Normal tricuspid valve with moderate regurgitation. Estimated right ventricular systolic pressure is 24 mmHg Wall motion Left Ventricle The left ventricle is normal size. The left ventricular systolic function is normal. The left ventric ular ejection fraction is within the normal range. There is normal left ventricular wall thickness. T here is normal LV segmental wall motion. There is no ventricular septal defect visualized. LVEF is 60 %. Right Ventricle The right ventricle is normal size. The right ventricular systolic function is normal. Atria The left atrium size is normal. The right atrium size is normal. The interatrial septum is intact wit h no evidence for an atrial septal defect. Aortic Valve The aortic valve is normal in structure. Aortic valve is trileaflet. There is no aortic valvular sten osis. No aortic regurgitation is present. Mitral Valve The mitral valve is normal in structure. No evidence of mitral valve stenosis. Mild mitral regurgita tion. Tricuspid Valve The tricuspid valve is normal in structure. There is no tricuspid valve stenosis. Moderate tricuspid regurgitation. The RVSP is 24.2 mmHg. Pulmonic Valve The pulmonary valve is normal in structure. There is no pulmonic valvular stenosis. Trace pulmonic re gurgitation. Great Vessels The aortic root is normal in size. The ascending aorta is normal in size. Aortic arch is normal in ca liber. IVC is normal in size and collapses >50% with inspiration. Pericardium There is no pericardial effusion. 2D Dimensions IVSD d PLAX 0.84 cm F: 0.6-1.0 Ao Root d 2.79 cm F: 2.7 - 3.3 LVPW d PLAX 0.83 cm F: 0.6 - 1.0 Ao Asc Diam d 2.89 cm F: 2.3 - 3.1 LVID d PLAX 4.40 cm F: 3.8 - 5.2 LVDs 3.05 cm F: 2.2 - 3.5 LV EF Teichholz 58.5 % FS 30.71 % LV EDV (Teich) 87.8 mL LV ESV (Teich) 36.5 mL M-Mode TAPSE 2.09 cm (M/F) >1.7 Auto EF LV EDV A4C 72.5 mL LV EDV A2C 62.3 mL LV EDV BP 68.9 mL LV ESV A4C 32.0 mL LV ESV A2C 26.0 mL LV ESV BP 29.3 mL LVEF(%) A4C 55.8 % LVEF(%) A2C 58.3 % LVEF(%) BP 57.5 % LV SV A4C 40.4 ml LV SV A2C 36.3 ml LV SV BP 39.6 ml LV CO A4C 2.6 L/min LV CO A2C 2.3 L/min LV CO BP 2.5 L/min HR A4C 64.84 BPM HR A2C 62.94 BPM LV EDV Index (BP) LA Volume LA Length A4C 5.6 cm LA Length A2C 5.0 cm LA Area A4C s 22.38 cm2 LA Area A2C s 14.22 cm2 LA Vol A4C A-L 76.32 mL LA Vol A2C A-L 34.58 mL LA Vol Biplane A-L 54.4 mL LA Vol/BSA A4C A-L LA Vol/BSA A2C A-L LA Vol/BSA BP A-L 30.6 mL/m2 LA Vol A4C MOD 71.0 mL LA Vol A2C MOD 31.9 mL LA Vol BP MOD 50.3 mL RA Volume RA Area A4C 15.7 cm2 RA ESV A4C (A-L) 41.7mL RA Vol/BSA A4C A-L RA Length A4C 5.0 cm RA ESV A4C (MOD) 40.2mL LV Diastology MV E' medial 0.046 (>0.07 m/s) MV E Vmax 0.81 (0.4-1.3 m/s) MV E/E' MED 17.52 (<14) MV A Vmax 0.95 (0.4-1.3 m/s) MV E' lateral 0.065 (>0.1 m/s) E/A Ratio 0.9 MV E/E' LAT 12.53 (<14) MV E' Average 0.056 m/s MV E/E'(average) 14.61 Aortic Valve AoV Vmax 1.53 m/s LVOT Vmax 0.88 m/s AoV Peak Grad 9.3 mmHg LVOT Peak Grad 3.1 mmHg AoV Area (Vmax) 1.81 cm2 LVOT VTI 0.208 m AoV VTI 0.355 m LVOT Mean Grad 1.6 mmHg AoV Mean William. 1.05 m/s LVOT SV 65.16 mL AoV Mean Grad 5.1 mmHg LVOT Diam s 1.95 cm AoV Area (VTI) 1.84 cm2 Velocity Ratio 0.58 Mitral Valve MV DT 152 (160-240 msec) MV Vmax TIPS 0.95 m/s MV Mean Grad 1.5 (<2mmHg) MV VTI 0.319 m Pulmonary Valve PV Vmax 0.98 (0.5-1.5 m/s) RVOT Vmax 0.85 m/s PV Peak Grad 3.8 mmHg RVOT Peak Gr. 2.9 mmHg PV Mean William 0.73 m/s RVOT VTI 0.183 m PV Mean Grad 2.4 mmHg RVOT Mean Gr. 1.4 mmHg Tricuspid Valve RA Pressure 3.00 mmHg TR Vmax 2.30 m/s TV S' 0.12 m/s TR Peak Grad 21.2 mmHg RVSP (TR) 24.2 mmHg
== END ==
PROVIDERS: PCP Nurse Practitioner Family; Visit Provider Physical Therapy Assistant
DX: I10 Essential (primary) hypertension (principal); I34.0 Nonrheumatic mitral (valve) insufficiency
CPT/HCPCS: 93306

== ENCOUNTER 2023-05-04 07:45 | Day surgery (SDC) | payer MEDICARE, SELFPAY ==
[2023-05-04 07:57] VITALS: BP 171/86; PULSE 76; RESP 18; TEMP 37; O2SAT 96
[2023-05-04] MEDS: Lactated Ringers 1,000 ML 80 ML IV (08:15)
--- NOTE | 2023-05-04 08:49 | W.ANESPRE ---
General Info Date of Service Date Performed: 05/04/23 Height: 5 ft 3 in Weight: 75.4 kg Body Mass Index (BMI): 29.4 Surgical Procedure: Operation Date: 05/04/23 09:05 Proposed Procedure Side Surgeon p Gastroscopy Triston Seaman MD Meds Allergies and Home Medications Allergies Allergy/AdvReac Type Severity Reaction Status Date / Time No Known Allergies Allergy Verified 05/04/23 08:03 Home Medication Medication Instructions Recorded ascorbic acid (vitamin C) 500 mg 500 mg PO DAILY 11/03/12 tablet (Vitamin C) multivitamin (One Daily tablet) 1 tab PO DAILY 11/03/12 aspirin 81 mg tablet,delayed 81 mg PO DAILY 01/15/20 release ferrous sulfate 325 mg (65 mg 325 mg PO DAILY 01/16/22 iron) tablet alendronate 70 mg tablet (Fosamax) 70 mg PO QWEEK #14 tabs 03/25/23 lisinopril 40 mg tablet 40 mg PO DAILY #90 tabs 03/25/23 calcium carbonate 600 mg calcium 600 mg PO BID 04/09/23 (1,500 mg) tablet (Calcium) glucosamine-chondroitin 250 mg-200 2 tab PO ONCE 04/09/23 mg tablet (Osteo Bi-Flex) atorvastatin 10 mg tablet (Lipitor) 10 mg PO HS #90 tab-caps 04/20/23 Current Visit Medications: Current Medications Generic Name Dose Route Start Last Admin Trade Name Freq PRN Reason Stop Dose Admin Ringer's Solution 1,000 mls @ 80 mls/hr 05/04/23 06:00 05/04/23 08:15 IV 05/31/23 23:59 80 mls/hr INFUSION DANE Administration IV Miscellaneous Supplies 1 each 05/04/23 06:00 Iv Access IV 05/31/23 23:59 DIRECTED DANE Sodium Chloride 0 ml 05/04/23 06:00 Normal Saline Flush 10 Ml Syr IV 05/31/23 23:59 PRN PRN Sodium Chloride 0 ml 05/04/23 06:00 Normal Saline 10 Ml Vial IJ 05/31/23 23:59 DIRECTED PRN Sterile Water 0 ml 05/04/23 06:00 Water,Injection,Sterile 10 Ml Vial IJ 05/31/23 23:59 DIRECTED PRN PFSH Active Problems Active Problems: Problem Status Onset Code Essential hypertension I10 Hyperlipidemia E78.5 Hernia, hiatal K44.9 Mitral valve regurgitation I34.0 Primary osteoarthritis of both knees M17.0 Osteoporosis M81.0 Uterovaginal prolapse N81.4 Diverticulosis of colon K57.30 Bilateral inguinal hernia K40.20 Medical History Medical History Abbasi's palsy Iron deficiency anemia Surgical History Surgical History History of bilateral tubal ligation S/P colonoscopy (07/14/16) Tobacco Smoking/Tobacco Use Status: Never Passive smoking exposure: Yes Second hand exposure: Yes Alcohol Alcohol Intake: current Alcohol intake frequency: holidays/special occasions only Alcohol type: wine Substance Use Substance use: Never Substance use type: does not use Prental History History 2 Para 2 Hx # Term Pregnancies Multiple births Hx # Pregnancies Ectopic pregnancies AB induced Hx Number of Living Children 2 AB spontaneous Vital Signs and Lab Results Vital Signs Most Recent Vital Signs in EMR: Most Recent Vital Signs Temp Pulse Resp BP Pulse Ox 37.0 C 76 18 171/86 H 96 05/04/23 07:57 05/04/23 07:57 05/04/23 07:57 05/04/23 07:57 05/04/23 07:57 Lab Results Blood Type / Crossmatch: No Data to Display Complete Blood Count: No Data to Display Complete Metabolic Panel: No Data to Display Liver Function Panel: No Data to Display Coagulation Panel: No Data to Display Cardiac Panel: No Data to Display Arterial Blood Gas: No Data to Display Venous Blood Gas: No Data to Display Pancreas Panel: No Data to Display Thyroid Panel: No Data to Display Infectious Disease: No Data to Display Blood Cultures: No Data to Display Toxicology Panel: No Data to Display Imaging and Studies Imaging and Studies Study information below may be from another EMR and interpreted by another provider. Please see original notes in EMR for more complete details. EKG Summary: Conclusion Sinus rhythm...normal P axis, V-rate 60- 99 07/19/22 Echocardiogram Summary: Conclusion Normal left ventricular wall thickness and chamber size. Ejection fraction is 60%. Wall motion is normal Normal right ventricular size and systolic function Both atria are normal in size Trileaflet aortic valve without stenosis or regurgitation Normal mitral valve with mild regurgitation Normal tricuspid valve with moderate regurgitation. Estimated right ventricular systolic pressure is 24 mmHg 04/28/23 Anesthesia Assessment and Plan Anesthesia History Personal History: No History of Anesthesia Complications Family History: No Family History of Anesthesia Complications Exercise Tolerance Exercise Tolerance: Metabolic Equivalents>4 Pertinent Negatives Pertinent Negatives: No Symptoms of GERD (hiatal hernia), No Major Cardiovascular Symptoms or Complaints, No Major Pulmonary Symptoms or Complaints and No History of CVA/TIA Cardiac & Pulmonary Exam Cardiac Exam: Normal S1/S2 Heart Sounds Pulmonary Exam: Clear Bilateral Breath Sounds Implantable Cardiac Device Does patient have a Pacemaker or an ICD?: No Airway Exam Known Difficult Airway: No Mallampati Class: 2 Mouth Opening: Normal (> 3cm) Thyromental Distance: Greater than 3 cm Neck Range of Motion: Full ROM Neck Circumference: Normal Teeth Condition: Normal Dentition ASA Classification ASA Score: ASA 2 Emergency Case?: No NPO Status NPO Status: NPO Clears >2 hours, Solids >8 hours Anesthesia Plan Resuscitation Status: Full Code Anesthesia Technique: General Anesthesia Airway Planned: Natural Airway Monitors Used: Standard Monitors
[2023-05-04 08:53] VITALS: BMI 29.4
--- NOTE | 2023-05-04 08:54 | W.PM.ENDDOP ---
Date of service: 05/04/23 Time of Service: 08:54 Endoscopy Report PROCEDURE DESCRIPTION: Procedures performed: 1. Esophagogastroduodenoscopy with cold forceps biopsies Preoperative diagnosis: Dysphagia, chest pain, hiatal hernia Postoperative diagnosis: Type III paraesophageal hernia, Thor's stomach ulcers Surgeon: Geovany Seaman Anesthesia: Zina Indication for procedure: 77-year-old woman has been experiencing on and off, episodic epigastric discomfort she describes as a knot that is related to eating and when it happens she cannot eat anymore and sometimes has to vomit and has heartburn associated with it. When there is no discomfort, she does not have any symptoms or problems otherwise. Findings: - D3, D2 and D1 - normal - no inflammation or ulcers - Pylorus - patent. No bile reflux visualized during procedure. - Antrum - looked minimally/mildly inflamed and with chronic appeance - biopsies taken to rule out occult H. pylori - Stomach Body - visualized intra-abdominal portions normal. Stomach body is herniating through the hiatus with circumferential, Thor's?style ulcers noted where the stomach is rubbing up and over. - Fundus - Normal, except it is all in the chest above the diaphragm. - Hiatus - large type III paraesophageal hernia - Esophagus - distal esophagus does not look inflamed at al despite hernia. No stricture, no esophagitis visually and no evidence of Douglas's. I took biopsies to confirm. In the midesophagus was a small 2-3 mm papilloma?appearing lesion of unknown significance and this was biopsied as well, separately. - Cords/hypopharynx - Normal OVERALL - large type III paraesophageal hernia which is causing ulcers (Thor's) Surveillance/follow-up recommendations: Elective, surgical repair of the hernia is highly recommended. Complications: None Blood loss: Minimal Specimens: YES Procedure in detail: Written consent was obtained from the patient who was in agreement with the risks, benefits and indications of the procedure. We went to the endoscopy suite and laid the patient in left lateral decubitus position. Anesthesia was administered which was tolerated well. A timeout was performed and when we are all in agreement we began the procedure. A well?lubricated endoscope was advanced without difficulty down the esophagus, into the stomach, through a patent pylorus and into the duodenum. It was then slowly pulled back with findings noted above. The scope was then removed and the patient tolerated the procedure well and was then turned for the colonoscopy portion of the procedure (see separate procedure note)
--- NOTE | 2023-05-04 08:56 | PDOC.DSDIS_ITS ---
Date of service: 05/04/23 Time of Service: 08:56 Discharge Plan Disposition Patient Disposition: Home Condition: Good Discharge Details Attending Provider: Triston Seaman Primary Care Provider: Virgie Johnston Home Meds and New Rx's Prescriptions: No Action aspirin 81 mg tablet,delayed release (DR/EC) 81 mg PO DAILY calcium carbonate [Calcium 600] 600 mg calcium (1,500 mg) tablet 600 mg PO BID glucosamine-chondroitin [Osteo Bi-Flex] 250-200 mg tablet 2 tab PO ONCE ferrous sulfate 325 mg (65 mg iron) tablet 325 mg PO DAILY Rx Instructions: Take 1 tablet twice a day with your vitamin c alendronate [Fosamax] 70 mg tablet 70 mg PO QWEEK Qty: 14 3RF lisinopril 40 mg tablet 40 mg PO DAILY Qty: 90 3RF multivitamin [One Daily] 1 EACH tablet 1 tab PO DAILY ascorbic acid (vitamin C) [Vitamin C] 500 MG tablet 500 mg PO DAILY atorvastatin [Lipitor] 10 mg tablet 10 mg PO HS Qty: 90 3RF Discharge Instructions Additional Instructions: FINDINGS: We have a very large paraesophageal hernia which is a special type, a more advanced type, of hiatal hernia. This hernia is the cause of your pain and in particular, it is causing stomach ulcers. It is a mechanical problem because the stomach is rubbing up and down over your diaphragm which is causing the ulcers to happen. This is almost certainly the reason you had anemia historically. It is highly recommended that you have surgical repair for this hernia and short?term follow-up in the surgical office is recommended to discuss next steps. Activity:: Activity as Tolerated Diet:: As Tolerated Discharge Orders Discharge Orders: Discharge Order (Routine); Ordered 05/04/23 Ordered By: Triston Seaman DS: Diagnosis Discharge Diagnosis (1) Hernia, hiatal: Status: Chronic Asessment and Plan: FINDINGS: We have a very large paraesophageal hernia which is a special type, a more advanced type, of hiatal hernia. This hernia is the cause of your pain and in particular, it is causing stomach ulcers. It is a mechanical problem because the stomach is rubbing up and down over your diaphragm which is causing the ulce rs to happen. This is almost certainly the reason you had anemia historically. It is highly recommended that you have surgical repair for this hernia and short?term follow-up in the surgical office is recommended to discuss next steps.
--- NOTE | 2023-05-04 09:07 | STOM_PTH ---
PATIENT: Beata Hood LOC: [facility] U#:[id number] AGE/SX: 77/F ROOM: RE05/04/[address]: Tristno Seaman : 1945 BED: DIS: 05/04/2023 SPEC #: [id number] RECD: 05/04/23 12:56 STATUS: [facility] #: [id number] BEVERLY: 05/04/23 09:[address]: Triston Seaman DEPT: Surgical Specimen RECD BY: Dea Askew ENTERED: 05/04/23 12:58 SP TYPE: STOMACH OTHR DR: Virgie Johnston, OPERATOR RECEPTIONIST Tissues: 1 - STOMACH BIOPSY 2 - STOMACH BIOPSY 3 - ESOPHAGUS BIOPSY 4 - ESOPHAGUS BIOPSY Procedures: GROSS AND MICRO LEVEL 4 IMMUNOPEROXIDASE STAIN SPECIAL STAIN 1 Comments: [id number]
[2023-05-04 09:29] VITALS: BP 134/62; PULSE 69; RESP 16; TEMP 36.5; O2SAT 95
[2023-05-04 09:57] VITALS: BP 149/87; PULSE 66; RESP 16; TEMP 36.6; O2SAT 97
--- NOTE | 2023-05-04 10:03 | W.ANESPOSTOP ---
Postoperative Evaluation Date, Time and Location Date Performed: 05/04/23 Time Performed: 09:38 Patient Location: Day Surgery Unit Vital Signs Most Recent Imported Vital Signs: Most Recent Vital Signs Temp Pulse Resp BP Pulse Ox 36.6 C 66 16 149/87 H 97 05/04/23 09:57 05/04/23 09:57 05/04/23 09:57 05/04/23 09:57 05/04/23 09:57 Pain Score Most Recent Pain Score: Most Recent Pain Score Pain Level 0 05/04/23 09:57 Assessment Mental Status: Awake (Alert & Oriented to Patient Baseline) Airway and Respiratory Function: Patent airway with normal (patient baseline) respiratory exam Cardiovascular Function: Hemodynamically Stable Hydration Status: Adequately Hydrated Nausea & Vomiting: No Nausea or Vomiting Pain: Pt. Denies Any Pain Peripheral Nerve Block: Patient did not receive a nerve block
== END 2023-05-04 10:26 | disposition home or self-care (01) ==
PROVIDERS: PCP Nurse Practitioner Family; Visit Provider Student in an Organized Health Care Education/Training Program
PROC: 0DJ68ZZ Inspection of Stomach, Via Natural or Artificial Opening Endoscopic (ICD-10-PCS; CPT 43235; principal; 2023-05-04 09:00)
DX: K44.9 Diaphragmatic hernia without obstruction or gangrene (principal); K25.9 Gastric ulcer, unspecified as acute or chronic, without hemorrhage or perforation; R07.89 Other chest pain; R13.10 Dysphagia, unspecified; D13.0 Benign neoplasm of esophagus; K31.89 Other diseases of stomach and duodenum
CPT/HCPCS: 43239; 88305; 88312; 88361; J2001

== ENCOUNTER → 2023-05-25 09:18 | Outpatient (BNVA) | payer MEDICARE, SELFPAY | PROVIDERS: PCP Nurse Practitioner Family; Referring Provider Nurse Practitioner Family; Visit Provider Student in an Organized Health Care Education/Training Program | DX: M17.0 Bilateral primary osteoarthritis of knee (principal) | CPT/HCPCS: 99213 ==

== ENCOUNTER → 2023-05-27 13:37 | Outpatient (BNVA) | payer MEDICARE, SELFPAY | PROVIDERS: PCP Nurse Practitioner Family; Referring Provider Nurse Practitioner Family; Visit Provider Student in an Organized Health Care Education/Training Program | DX: K44.0 Diaphragmatic hernia with obstruction, without gangrene (principal) | CPT/HCPCS: 99215 ==

== ENCOUNTER → 2023-07-15 12:25 | Outpatient (BNVA) | payer MEDICARE, SELFPAY | PROVIDERS: PCP Nurse Practitioner Family; Referring Provider Nurse Practitioner Family; Visit Provider Student in an Organized Health Care Education/Training Program | DX: K44.0 Diaphragmatic hernia with obstruction, without gangrene (principal) | CPT/HCPCS: 99215 ==

== ENCOUNTER 2023-08-20 11:53 | Outpatient (CLI) | payer MEDICARE, SELFPAY ==
[2023-08-20 11:31] LABS: Anion Gap 5.8 mmol/L (3-11); BUN 27 mg/dL (7-18); CO2 27.2 mmol/L (21.0-32.0); CREATININE 0.7 mg/dL (0.55-1.02); Calcium 9.1 mg/dL (8.5-10.1); Chloride 106 mmol/L (98-107); Estimated GFR 89.58 (mL/min/1.73m2); Glucose 107 mg/dL (74-106); Sodium 139 mmol/L (136-145)
== END 2023-08-20 11:54 | disposition home or self-care (01) ==
LOC: LBO 11:53
PROVIDERS: PCP Nurse Practitioner Family; Visit Provider Nurse Practitioner Family
DX: I10 Essential (primary) hypertension (principal)
CPT/HCPCS: 36415; 80048

== ENCOUNTER 2023-09-07 06:19 | Observation (INO) | payer MEDICARE, SELFPAY ==
[2023-09-07] VITALS (22 sets, daily range): BP systolic 86–132; BP diastolic 34–81; PULSE 62–92; RESP 10–19; TEMP 35.4–37.1; O2SAT 92–100; BMI 28.7
--- NOTE | 2023-09-07 06:34 | ANES.PREOP_ITS ---
General Info Date of Service Date Performed: 09/07/23 Height: 5 ft 3 in Weight: 73.539 kg Body Mass Index (BMI): 28.7 Surgical Procedure: Operation Date: 09/07/23 07:30 Proposed Procedure Side Surgeon p Hernia Paraesophageal Laparoscopic W/Fundoplication & Mesh Triston Seaman MD Meds Allergies and Home Medications Allergies Allergy/AdvReac Type Severity Reaction Status Date / Time No Known Allergies Allergy Verified 09/07/23 06:25 Home Medication Medication Instructions Recorded ascorbic acid (vitamin C) 500 mg 500 mg PO DAILY 11/03/12 tablet (Vitamin C) multivitamin (One Daily tablet) 1 tab PO DAILY 11/03/12 aspirin 81 mg tablet,delayed 81 mg PO DAILY 01/15/20 release ferrous sulfate 325 mg (65 mg 325 mg PO DAILY 01/16/22 iron) tablet alendronate 70 mg tablet (Fosamax) 70 mg PO QWEEK #14 tabs 03/25/23 lisinopril 40 mg tablet 40 mg PO DAILY #90 tabs 03/25/23 calcium carbonate 600 mg calcium 600 mg PO BID 04/09/23 (1,500 mg) tablet (Calcium) glucosamine-chondroitin 250 mg-200 2 tab PO ONCE 04/09/23 mg tablet (Osteo Bi-Flex) atorvastatin 10 mg tablet (Lipitor) 10 mg PO HS #90 tab-caps 04/20/23 hydrochlorothiazide 12.5 mg tablet 12.5 mg PO DAILY #90 tabs 05/20/23 omeprazole 40 mg capsule,delayed 40 mg PO BID #60 caps 05/27/23 release Current Visit Medications: Current Medications Generic Name Dose Route Start Last Admin Trade Name Freq PRN Reason Stop Dose Admin Heparin Sodium (Porcine) 5,000 units 09/07/23 06:00 Heparin 5,000 Units/Ml Vial SC 09/07/23 16:00 PREOP DANE Ringer's Solution 1,000 mls @ 75 mls/hr 09/07/23 06:00 IV 10/04/23 23:59 INF[facility]ION [facility] IV Miscellaneous Supplies 1 each 09/07/23 06:00 Iv Access IV 10/04/23 23:59 DIRECTED DANE Sodium Chloride 0 ml 09/07/23 06:00 Normal Saline Flush 10 Ml Syr IV 10/04/23 23:59 PRN PRN Sodium Chloride 0 ml 09/07/23 06:00 Normal Saline 10 Ml Vial IJ 10/04/23 23:59 DIRECTED PRN Sterile Water 0 ml 09/07/23 06:00 Water,Injection,Sterile 10 Ml Vial IJ 10/04/23 23:59 DIRECTED PRN PFSH Active Problems Active Problems: Problem Status Onset Code Paraesophageal hernia with obstruction but no gangrene K44.0 Essential hypertension I10 Hyperlipidemia E78.5 Hernia, hiatal K44.9 Mitral valve regurgitation I34.0 Primary osteoarthritis of both knees M17.0 Osteoporosis M81.0 Uterovaginal prolapse N81.4 Diverticulosis of colon K57.30 Bilateral inguinal hernia K40.20 Medical History Medical History Iron deficiency anemia Abbasi's palsy Surgical History Surgical History History of bilateral tubal ligation S/P colonoscopy (04/2023) Highly recommend for Hernia repair Tobacco Smoking/Tobacco Use Status: Never Passive smoking exposure: Yes Second hand exposure: Yes Alcohol Alcohol Intake: current Alcohol intake frequency: holidays/special occasions only Alcohol type: wine Substance Use Substance use: Never Substance use type: does not use Prental History History 2 Para 2 Hx # Term Pregnancies Multiple births Hx # Pregnancies Ectopic pregnancies AB induced Hx Number of Living Children 2 AB spontaneous Vital Signs and Lab Results Lab Results Blood Type / Crossmatch: No Data to Display Complete Blood Count: No Data to Display Complete Metabolic Panel: Sodium 139 mmol/L (136-145) 08/20/23 10:40 Potassium 4.0 mmol/L (3.5-5.1) 08/20/23 10:40 Chloride 106 mmol/L (98-107) 08/20/23 10:40 Carbon Dioxide 27.2 mmol/L (21.0-32.0) 08/20/23 10:40 BUN 27 mg/dL (7-18) H 08/20/23 10:40 Creatinine 0.7 mg/dL (0.55-1.02) 08/20/23 10:40 Est GFR (CKD-EPI 2020) 89.58 (mL/min/1.73m2) 08/20/23 10:40 Calcium 9.1 mg/dL (8.5-10.1) 08/20/23 10:40 Glucose 107 mg/dL (74-106) H 08/20/23 10:40 Liver Function Panel: No Data to Display Coagulation Panel: No Data to Display Cardiac Panel: No Data to Display Arterial Blood Gas: No Data to Display Venous Blood Gas: No Data to Display Pancreas Panel: No Data to Display Thyroid Panel: No Data to Display Infectious Disease: No Data to Display Blood Cultures: No Data to Display Toxicology Panel: No Data to Display Imaging and Studies Imaging and Studies Study information below may be from another EMR and interpreted by another provider. Please see original notes in EMR for more complete details. EKG Summary: Conclusion Sinus rhythm...normal P axis, V-rate 60- 99 07/19/22 Echocardiogram Summary: Conclusion Normal left ventricular wall thickness and chamber size. Ejection fraction is 60%. Wall motion is normal Normal right ventricular size and systolic function Both atria are normal in size Trileaflet aortic valve without stenosis or regurgitation Normal mitral valve with mild regurgitation Normal tricuspid valve with moderate regurgitation. Estimated right ventricular systolic pressure is 24 mmHg 04/28/23 Other Study Summary:: CTA chest, CT abd/pelvis and spine XR reviewed and results in chart Anesthesia Assessment and Plan Anesthesia History Personal History: No History of Anesthesia Complications Family History: No Family History of Anesthesia Complications Exercise Tolerance Exercise Tolerance: Metabolic Equivalents>4 Pertinent Negatives Pertinent Negatives: No Major Cardiovascular Symptoms or Complaints, No Major Pulmonary Symptoms or Complaints and No History of CVA/TIA Cardiac & Pulmonary Exam Cardiac Exam: Normal S1/S2 Heart Sounds Pulmonary Exam: Clear Bilateral Breath Sounds Implantable Cardiac Device Does patient have a Pacemaker or an ICD?: No Airway Exam Known Difficult Airway: No Mallampati Class: 3 Mouth Opening: Normal (> 3cm) Thyromental Distance: Greater than 3 cm Neck Range of Motion: Full ROM Neck Circumference: Normal Teeth Condition: Normal Dentition ASA Classification ASA Score: ASA 2 Emergency Case?: No NPO Status NPO Status: NPO Clears >2 hours, Solids >8 hours Anesthesia Plan Resuscitation Status: Full Code Anesthesia Technique: General Anesthesia Airway Planned: Endotracheal Tube Pain Management: Surgeon and patient request nerve block Monitors Used: Standard Monitors Preoperative Comments:: RSI
[2023-09-07] MEDS: Lactated Ringers 1,000 ML 75 ML IV ×2 (07:00→14:31)
[2023-09-07] MEDS: Acetaminophen 500 MG TAB 1000 MG PO (07:13)
[2023-09-07] MEDS: Gabapentin 300 MG CAP PO (07:14)
[2023-09-07] MEDS: Celecoxib 200 MG CAP PO (07:14)
[2023-09-07] MEDS: Heparin 5,000 UNITS/ML VIAL 5000 UNITS SC ×2 (07:31→21:14)
--- NOTE | 2023-09-07 07:45 | SCONE_ITS ---
Date of service: 09/07/23 Time of Service: 07:40 Assessment and Plan Assessment and plan (1) Paraesophageal hernia with obstruction but no gangrene: Status: Acute Assessment and plan: 78-year-old woman with a large, symptomatic type III paraesophageal hernia warranting surgical repair. While her manometry results were inconclusive from a comprehensive standpoint, she has intact esophageal peristalsis and recent literature shows no increase in dysphagia with a Tony fundoplication. A Tony fundoplication is thought to be potentially more durable since the wrap is stomach to stomach rather than sutured to esophagus.(in a partial) Overall surgical plan for the fundoplication/wrap after paraesophageal hernia repair: If amenable to an easy and straightforward LOOSE Tony fundoplication, we will do that. Otherwise a Toupet fundoplication will be performed. History of Present Illness Narrative: The patient is a 78-year-old woman who has a symptomatic, large type III paraesophageal hernia. She has episodes of chest pain and has Thor's ulcers because of the hernia. We have had discussion about elective repair of this hernia for a number of months now. She has no new complaints or concerns today. She has no new questions. PFS All Active Problems Paraesophageal hernia with obstruction but no gangrene (Acute) Essential hypertension (Chronic) Hyperlipidemia (Chronic) Hernia, hiatal (Chronic) Mitral valve regurgitation (Chronic) mild to moderate on ECHO 2019 Primary osteoarthritis of both knees (Chronic) Osteoporosis (Chronic) Dexa 2022. Fosamax started 2022 Uterovaginal prolapse (Chronic) [place] [facility] [place] Diverticulosis of colon (Chronic) Bilateral inguinal hernia (Chronic) Medical History Iron deficiency anemia Abbasi's palsy Surgical History History of bilateral tubal ligation S/P colonoscopy (04/2023) Highly recommend for Hernia repair Family History Mother , 88 Essential hypertension Heart disease Hyperlipidemia Stroke Type 2 diabetes mellitus Dementia Diabetes Father , 89 Essential hypertension Heart disease Type 2 diabetes mellitus Bladder cancer Sister No problems noted. Son No problems noted. Son No problems noted. Maternal Grandfather Heart disease Maternal Grandmother Heart disease Paternal Grandfather Stroke Paternal Grandmother Stroke Heart disease Social History (Updated 01/30/23 @ 12:26 by Brandee Hobbs) Smoking/Tobacco Use Status: Never Second Hand Exposure: Yes Smoking risk assessment performed?: Yes Alcohol Intake: current Alcohol Intake frequency: holidays/special occasions only Alcohol type: wine Drug use: Never Substance use type: does not use Details: alcohol: t-2,one glass Caregiver/Support person: No Household members: spouse Housing: house Communication Needs: None Do you need help understanding health information?: Never Pets and animals: Yes Pets and animals: dog(s) Sexually active: Yes Do you think of yourself as: straight/heterosexual Current gender identity: female What is your relationship status?: How often do you talk on the phone with friends or family?: twice per week How often do you get together with friends or relatives?: twice per week How often do you attend mosque or orthodoxy services?: 1-3 times per year Do you belong to any clubs or organized social groups?: yes Panel score (0-1 are the most socially isolated patients): 3 Duration: < 15 minutes/day Frequency: 1-2 times per week Leonila/Holiness: Latter-[employer] Special leonila needs: No Seatbelt use: always Helmet use: No Drive intox or ride w/intox 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 Do you feel safe at home: Yes Do you feel safe in your relationship?: Yes Additional Social history: unable to assess claudia Female Reproductive History Menstrual Menopause type: natural History History 2 Para 2 Hx # Term Pregnancies Multiple births Hx # Pregnancies Ectopic pregnancies AB induced Hx Number of Living Children 2 AB spontaneous Exam Narrative Exam Narrative: General: Nontoxic, comfortable and interactive Neuro: Alert and oriented x 3 Psych: Good mood and affect, good insight and understanding into her condition Chest: Nonlabored breathing and no wheezing Heart: Regular Results Last Vital Signs Temp 98.8 F 09/07/23 06:46 Pulse 79 09/07/23 06:46 Resp 16 09/07/23 06:46 BP 131/65 09/07/23 06:46 Pulse Ox 96 09/07/23 06:46
--- NOTE | 2023-09-07 08:28 | W.ANESNERVE ---
Nerve Block Single Injection Procedure Date and Time Date Performed: 09/07/23 Procedure Start: 07:50 Location Where Procedure Performed Procedure Location: Day Surgery Unit Reason Performed: Postoperative Analgesia Requesting Provider: Triston Seaman Timeout Performed Timeout Performed: Yes Monitoring Used ECG, Blood Pressure, SpO2 and See EMR for corresponding vital signs Sterility Sterility: Hand Hygiene, Surgical Cap, Surgical Mask, Sterile Gloves and Chlorhexidine Sedation Given During Procedure Sedation Given (Indicate Dose Given): Versed IV Dose:: 2mg Patient Mental Status Patient Mental Status: Awake Nerve Block 1st Nerve Block: Laterality: Bilateral Block Type: Erector Spinae (Lower) Ultrasound Image Saved?: Yes Needle / Catheter Used: 100mm SonoPlex II Local Anesthetic Bolus (Indicate Dose Given): Lidocaine used for local infiltration of skin, Injected in 3-5ml increments after negative blood aspiration, Half of Total block solution given into each side, Bupivacaine 0.25% Dose:: 40 ml and Exparel Dose:: 20 ml Additives (Indicate Dose Given): None Ultrasound: Sterile probe cover and gel used Nerve Stimulator: Not Used Paresthesia: None Procedure Tolerated: No Complications and Patient tolerated well Procedure Outcome: Successful Procedure Comment: Procedure started by Alfred, despite depth, technically challenging block and requested assist. I completed both blocks but had the same challenge with needle view. I did relocate needle insertion for the right sided block and used hydrodissection and tissue tenting until in correct location and local given. Despite challenges, both blocks had good plane spread. Performed By: Lucian Escalante
[2023-09-07] MEDS: Bupivacaine 0.25% Pres-Free 30 ML VIAL (11:25)
--- NOTE | 2023-09-07 12:59 | ROE_ITS ---
Date of service: 09/07/23 Time of Service: 12:30 Operative Note Operative Note Refer to Anesthesia Record Procedure Description: Procedures: 1. Laparoscopic paraesophageal hernia repair with Phasix ST mesh. 2. Laparoscopic Tony fundoplication Preoperative Diagnosis: type 3 paraesophageal hernia Postoperative Diagnosis: Same Surgeon: Geovany Seaman Assist: None Anesthesia: General Anesthesiologist: Zina Indication: 78-year-old woman with a symptomatic type III paraesophageal hernia. In particular, her hernia was causing Thor's ulcers, and episodic severe chest pain. Findings: A large-size type III paraesophageal hernia was present and repaired with suture repair primarily at the sajan and then buttressed with a Phasix ST mesh. A 360 degree Tony fundoplication was performed over a 56 pashto bougie. Complications: None Estimated Blood Loss: Minimal Specimens removed: None Grafts or implants: Phasix ST mesh Procedure in detail: Written consent was obtained from the patient who was in agreement with the risks, the benefits, and indications for the procedure. Anesthesia performed an ultrasound?guided local block (see their procedure note for details). The patient was taken to the operating suite and laid supine on the operating table with arms outstretched. General anesthesia was administered which was tolerated very well. She was then placed in lithotomy. Next we prepped and draped the abdomen in sterile fashion. A timeout was performed. When we were all in agreement we began the procedure. Local anesthetic was injected at the incision sites. Just to the left of the bellybutton a small stab incision was made and a 5 mm Optiview trocar was used into the abdomen under direct visualization. Four-quadrant diagnostic laparoscopy was performed and was within normal limits. The liver was inspected and did not appear cirrhotic. 3 more trochars were placed across the abdomen under visualization. The 12 mm working port was placed in the mid clavicular line on the left side per. A Jesu liver retractor was used to retract the liver anteriorly and was placed in the epigastric location through a 5 mm defect. The patient was placed in steep reverse Trendelenburg and we had good visualization of the hiatus. The hernia defect was relatively large and I had to reduce the stomach out of the chest laparoscopically. Then, in usual fashion, I found the left and the right sajan of the diaphragm and incised the peritoneum overlying them from posterior circumferentially up to the anterior portion of the esophagus. Next, I turned my attention to opening pars flaccida and took down the attachments leading up to the right sajan. This nicely opened up the hiatus and I was able to take down the hernia sac throughout the entire mediastinum. A combination of blunt dissection as well as dissection with the LigaSure was performed to mobilize the esophagus within the mediastinum taking care to dissect high into the mediastinum to facilitate excellent mobilization and get a good portion of intra-abdominal esophagus. Both vagus nerves were identified and kept intact. Satisfied with circumferential dissection within the mediastinum and the mobilization of the esophagus, we verified that we had greater than 3 cm of esophagus intra-abdominal. At this point I closed the left and right crura primarily using an Endo Stitch. We had a nice closure that did not have any ten rush and ensuring that we were not too tight around the esophagus, I fixated the Phasix ST mesh (that I had pre-cut to size on the back table) in place with a single suture on each side of it through the left and right crura individually and I also placed a suture through the primary repair buttressing it against and reinforcing my suture line. At this point anesthesia advanced a 56 [place]ian bougie gently down the esophagus while we watched with the laparoscope. I was able to grab the fundus of the stomach and bring it around behind the esophagus to attempt our wrap. A couple of the short gastrics were found to be tethering the fundus and these were taken down with the LigaSure. After taking them down, we had good mobilization and I was able to get the fundus completely wrapped around the esophagus and GE junction over top of the 56 [place]ian bougie and no tension was noted. I then used 2-0 silk suture and sutured ~ 2 cm length of fundus to fundus, thus completing the 360 degree wrap. I placed 2 of the stitches partial-thickness through the esophagus to prevent the wrap from moving up or down at the GE junction. Hemostasis was excellent, the wrap lay very nicely and had no tension anywhere. It was very floppy and I was satisfied with its appearance. All the needles were removed. The 12 mm epigastric port site was closed with 0 Vicryl using a Edwin Milena. All trochars were removed under visualization and the pneumoperitoneum was evacuated. I closed the skin with running Monocryl and placed Dermabond over top of the wounds. The sponge, instrument and sharps count was correct x3 at the end of the procedure. The patient tolerated the procedure well and was taken to the PACU in hemodynamically stable condition.
[2023-09-07] MEDS: HYDROmorphone 2 MG/ML SYR IVP (13:37)
[2023-09-07] MEDS: Normal Saline 10 ML VIAL IJ (13:37)
--- NOTE | 2023-09-07 13:59 | W.ANESPOSTOP ---
Postoperative Evaluation Date, Time and Location Date Performed: 09/07/23 Time Performed: 13:59 Patient Location: PACU Vital Signs Most Recent Imported Vital Signs: Most Recent Vital Signs Temp Pulse Resp BP Pulse Ox 36.3 C L 70 11 L 103/81 97 09/07/23 13:50 09/07/23 13:50 09/07/23 13:50 09/07/23 13:50 09/07/23 13:50 Pain Score Most Recent Pain Score: Most Recent Pain Score Pain Level 0 09/07/23 07:45 Assessment Mental Status: Awake (Alert & Oriented to Patient Baseline) Airway and Respiratory Function: Patent airway with normal (patient baseline) respiratory exam Cardiovascular Function: Hemodynamically Stable Hydration Status: Adequately Hydrated Nausea & Vomiting: No Nausea or Vomiting Pain: Pt. Denies Any Pain Peripheral Nerve Block: Regional nerve block not resolved at time of post operative discharge Postoperative Comments:: Facial and neck subQ emphysema slowly resolving. Eyes still puffy but able to open them.
[2023-09-07] MEDS: Normal Saline Flush 10 ML SYR IV (14:31)
[2023-09-07] MEDS: ACETAMINOPHEN 1,000 MG/100 ML BTL 400 MG IVPB ×2 (15:25→20:33)
[2023-09-07] MEDS: Calcium Carbonate 1.5 GM TAB PO (20:35)
[2023-09-07 21:09] LABS: Abs Immature Grans 0.03 10^3/uL (0.0-0.06); Absolute Basophil Count 0.01 10^3/uL (0.0-0.2); Absolute Lymphocyte Count 0.62 10^3/uL (1.2-3.4); Absolute Monocyte Count 0.43 10^3/uL (0.1-0.8); Basophils % 0.1; HCT 41.2 % (36.0-46.0); Immature Grans % 0.3; Lymphocytes % 5.7; MCH 31.8 pg (27.0-33.0); MCV 94 fL (80-95); MPV 9.2 fL (8.0-11.0); Neutrophils % 89.9; Platelet Count 167 10^3/uL (130-400); RDW 12.6 % (11.7-14.6); RDW-SD 43.7 fL; WBC 10.85 10^3/uL (4.4-10.8)
[2023-09-07 21:10] LABS: Absolute Neutrophil Count 9.75 10^3/uL (1.2-6.7)
[2023-09-07] MEDS: Atorvastatin 10 MG TAB PO (21:14)
[2023-09-08] MEDS: ACETAMINOPHEN 1,000 MG/100 ML BTL 400 MG IVPB ×2 (02:19→07:26)
[2023-09-08 02:23] VITALS: BP 114/67; PULSE 94; RESP 18; TEMP 36.4; O2SAT 93
[2023-09-08] MEDS: Lactated Ringers 1,000 ML 75 ML IV (03:48)
[2023-09-08 06:53] LABS: HCT 37.5 % (36.0-46.0); MCH 32.4 pg (27.0-33.0); MCHC 34.7 % (32.0-36.0); MCV 94 fL (80-95); MPV 9.5 fL (8.0-11.0); Platelet Count 179 10^3/uL (130-400); RBC 4.01 10^6/uL (3.93-5.22); RDW 12.7 % (11.7-14.6); RDW-SD 43.6 fL; WBC 9.88 10^3/uL (4.4-10.8)
[2023-09-08] MEDS: Calcium Carbonate 1.5 GM TAB PO (07:26)
[2023-09-08] MEDS: Heparin 5,000 UNITS/ML VIAL 5000 UNITS SC (07:26)
[2023-09-08 07:39] VITALS: BP 121/66; PULSE 87; RESP 18; TEMP 36.4; O2SAT 96
[2023-09-08] MEDS: Ferrous Sulfate 325 MG TAB PO (07:40)
[2023-09-08] MEDS: Aspirin E.C. 81 MG TABEC PO (07:40)
[2023-09-08] MEDS: Multivitamin TAB 1 TAB PO (07:41)
--- NOTE | 2023-09-08 09:07 | W.PM.DS.N ---
Date of service: 09/08/23 Time of Service: 08:30 DS: Diagnosis Discharge Diagnosis (1) Paraesophageal hernia with obstruction but no gangrene: Status: Acute Asessment and Plan: 78-year-old woman postop day 1 from laparoscopic paraesophageal hernia repair. She is hemodynamically stable and doing well. She is tolerating a liquid diet. Overall plan: She can be discharged home 2 weeks pur?ed diet Discharge Plan Disposition Condition: Good Discharge Details Admit Date/Time: 09/07/23 06:19 Admit Provider: Triston Seaman Attending Provider: Triston Seaman Primary Care Provider: [facility] Hospital Course: 78-year-old woman presented for an elective, laparoscopic paraesophageal hernia repair. Her procedure went well and there were no complications. On postoperative day 1 she was tolerating a liquid diet. She did not have any dysphagia. She had no significant abdominal discomfort or chest discomfort. She was discharged home on a 2-week pur?ed diet. Home Meds and New Rx's Prescriptions: No Action aspirin 81 mg tablet,delayed release (DR/EC) 81 mg PO DAILY Patient Comments: last dose 09/04/23 calcium carbonate [Calcium 600] 600 mg calcium (1,500 mg) tablet 600 mg PO BID glucosamine-chondroitin [Osteo Bi-Flex] 250-200 mg tablet 2 tab PO ONCE ferrous sulfate 325 mg (65 mg iron) tablet 325 mg PO DAILY Rx Instructions: Take 1 tablet twice a day with your vitamin c alendronate [Fosamax] 70 mg tablet 70 mg PO QWEEK Qty: 14 3RF Patient Comments: last dose 09/06/23 lisinopril 40 mg tablet 40 mg PO DAILY Qty: 90 3RF hydrochlorothiazide 12.5 mg tablet 12.5 mg PO DAILY Qty: 90 3RF omeprazole 40 mg capsule,delayed release(DR/EC) 40 mg PO BID Qty: 60 1RF multivitamin [One Daily] 1 EACH tablet 1 tab PO DAILY ascorbic acid (vitamin C) [Vitamin C] 500 MG tablet 500 mg PO DAILY Patient Comments: last dose 09/04/23 atorvastatin [Lipitor] 10 mg tablet 10 mg PO HS Qty: 90 3RF Discharge Instructions Additional Instructions: Incisions: Keep clean and dry but they do not need to be covered. It is okay to shower but no tub bathing for 1 week. You can peel the glue off after 1 week. Activity: As tolerated. No heavy lifting/pulling/pushing or strenuous activity for 6 weeks. Diet: You can eat anything you want as long as it can be poured. Pur?ed consistency. Medications: Resume all of your usual/regular home medications. Follow-up: Follow-up in the surgery office in a couple of weeks Pain control: Take Tylenol, 1000 mg, every 6 hours on a schedule for the next 3 days. Activity:: Activity as Tolerated Equipment/Supplies:: No Equipment Needed Diet:: Pur?ed DS: Summary Time Spent with Patient providing and/or coordinating discharge services: Less than 30 minutes Status at Discharge Functional status at discharge: independent ambulation Overall status at discharge: patient is progressing back to baseline Mental Status: mental status grossly normal Speech and Movement: speech and movement normal Mood: congruent mood Affect: normal affect Quality:SDOH Health Related Social Needs: No Data to Display Exam Narrative Exam Narrative: General: Nontoxic, comfortable and interactive. She is in no distress and appears well. Neuro: Alert and oriented x 3 Psych: Good mood and affect, good insight and understanding into her condition. Chest: Nonlabored breathing, nontender. Scant amount of crepitus(expected) still present near the clavicles but less than yesterday. Heart: Regular Abdomen: Soft, nondistended, minimal/expected tenderness around incisions only. Psych Mental Status: mental status grossly normal Speech and Movement: speech and movement normal Mood: congruent mood Affect: normal affect DS: Data Vitals/I&O Vitals and I&O: Vital Signs Temperature 97.5 F L 09/08/23 07:39 Temperature Source Tympanic 09/08/23 07:39 Pulse 87 09/08/23 07:39 Pulse Rhythm Regular 09/07/23 23:06 Respiratory Rate 18 09/08/23 07:39 Respiratory Effort Normal, Non-Labored 09/07/23 23:06 Respiratory Depth Normal 09/07/23 23:06 Respiratory Pattern Normal 09/07/23 23:06 Blood Pressure 121/66 09/08/23 07:39 Blood Pressure Mean 84 09/07/23 07:45 Blood Pressure Position Sitting 09/07/23 07:45 Pulse Oximetry 96 09/08/23 07:39 Respiratory End-tidal CO2 30 09/07/23 14:05 Oxygen Delivery Method Room Air 09/08/23 07:39 Oxygen Flow Rate 0 09/08/23 07:39 Pain Level 0 09/08/23 07:39 Comment 0802: L side block done by Lucian Smith CRNA. ADMISSIONS COORDINATOR moved onto R side, no vitals requested. 0814: R side block finished and vitals above represent post bilateral block. Pt. tolerated intervention well. Pt. denies ringing in her ears, numbness around her mouth or metallic taste in her mouth. This nurse with pt. until she was taken to OR by Nisreen Franco RN. 09/07/23 07:45 Intake & Output 09/07/23 09/07/23 09/08/23 11:59 23:59 11:59 Intake Total 1355 / 1355 1336.25 / 1336.25 Output Total 200 / 200 Balance 1355 / 1355 1136.25 / 1136.25 Weight 158 lb 15.253 oz Intake: IV 1115 / 1115 1096.25 / 1096.25 Oral 240 / 240 240 / 240 Output: Urine 200 / 200 Other: Urine Color Straw Urine Appearance Clear Urine Odor Normal Comment unmeasured void Emesis Description None Voiding Methods Toilet Data Completed and Pending Labs on day of discharge: Labs from last 24 hours 09/08/23 09/07/23 06:10 20:55 WBC 9.88 10.85 H RBC 4.01 4.40 Hgb 13.0 14.0 Hct 37.5 41.2 MCV 94 94 MCH 32.4 31.8 MCHC 34.7 34.0 RDW 12.7 12.6 Plt Count 179 167 MPV 9.5 9.2 Immature Gran % 0.3 Neutrophils % 89.9 Lymphocytes % 5.7 Monocytes % 4.0 Eosinophils % 0.0 Basophils % 0.1 Nucleated RBC % 0.0 Absolute Neutrophils 9.75 H Absolute Lymphocytes 0.62 L Absolute Monocytes 0.43 Absolute Eosinophils 0.00 Absolute Basophils 0.01 PFSH All Active Problems Paraesophageal hernia with obstruction but no gangrene (Acute) Essential hypertension (Chronic) Hyperlipidemia (Chronic) Hernia, hiatal (Chronic) Mitral valve regurgitation (Chronic) mild to moderate on ECHO 2019 Primary osteoarthritis of both knees (Chronic) Osteoporosis (Chronic) Dexa 2022. Fosamax started 2022 Uterovaginal prolapse (Chronic) Pessary fitted at [facility] 01/15/2010 Diverticulosis of colon (Chronic) Bilateral inguinal hernia (Chronic) Medical History Iron deficiency anemia Abbasi's palsy Surgical History History of bilateral tubal ligation S/P colonoscopy (04/2023) Highly recommend for Hernia repair Family History Mother , 88 Essential hypertension Heart disease Hyperlipidemia Stroke Type 2 diabetes mellitus Dementia Diabetes Father , 89 Essential hypertension Heart disease Type 2 diabetes mellitus Bladder cancer Sister No problems noted. Son No problems noted. Son No problems noted. Maternal Grandfather Heart disease Maternal Grandmother Heart disease Paternal Grandfather Stroke Paternal Grandmother Stroke Heart disease Social History (Updated 01/30/23 @ 12:26 by Brandee Hobbs) Smoking/Tobacco Use Status: Never Second Hand Exposure: Yes Smoking risk assessment performed?: Yes Alcohol Intake: current Alcohol Intake frequency: holidays/special occasions only Alcohol type: wine Drug use: Never Substance use type: does not use Details: alcohol: t-2,one glass Caregiver/Support person: No Household members: spouse Housing: house Communication Needs: None Do you need help understanding health information?: Never Pets and animals: Yes Pets and animals: dog(s) Sexually active: Yes Do you think of yourself as: straight/heterosexual Current gender identity: female What is your relationship status?: How often do you talk on the phone with friends or family?: twice per week How often do you get together with friends or relatives?: twice per week How often do you attend episcopalian or sabianism services?: 1-3 times per year Do you belong to any clubs or organized social groups?: yes Panel score (0-1 are the most socially isolated patients): 3 Duration: < 15 minutes/day Frequency: 1-2 times per week Leonila/Taoist: Orthodoxy Special leonila needs: No Seatbelt use: always Helmet use: No Drive intox or ride w/intox limousine driver: No Do you feel safe at home: Yes Do you feel safe in your relationship?: Yes Additional Social history: unable to assess claudia Female Reproductive History Menstrual Menopause type: natural History History 2 Para 2 Hx # Term Pregnancies Multiple births Hx # Pregnancies Ectopic pregnancies AB induced Hx Number of Living Children 2 AB spontaneous Time Spent with Patient Time Spent with Patient: <45 minutes Time was spent: preparing to see the patient(eg.review tests), indepentently interpreting results, counseling the patient and care coordination
== END 2023-09-08 12:07 | disposition home or self-care (01) ==
LOC: PDS 09-08 10:10 → MS 09-08 10:10
PROVIDERS: Admitting Provider Student in an Organized Health Care Education/Training Program; PCP Nurse Practitioner Family; Visit Provider Student in an Organized Health Care Education/Training Program
PROC: 0BUT4JZ Supplement Diaphragm with Synthetic Substitute, Percutaneous Endoscopic Approach (ICD-10-PCS; CPT 43282; principal; 2023-09-07 07:30)
DX: K44.0 Diaphragmatic hernia with obstruction, without gangrene (principal); I10 Essential (primary) hypertension; E78.5 Hyperlipidemia, unspecified; I34.0 Nonrheumatic mitral (valve) insufficiency; M81.0 Age-related osteoporosis without current pathological fracture; D50.9 Iron deficiency anemia, unspecified; M17.0 Bilateral primary osteoarthritis of knee; K25.9 Gastric ulcer, unspecified as acute or chronic, without hemorrhage or perforation; K57.30 Diverticulosis of large intestine without perforation or abscess without bleeding; K40.20 Bilateral inguinal hernia, without obstruction or gangrene, not specified as recurrent; N81.4 Uterovaginal prolapse, unspecified
CPT/HCPCS: 43282; 00123; 36415; 76942; 85027; 86850; 86900; 86901; 99222; 85025; C1781; C9290; G0378; J0131; J0665; J1100; J1170; J1644; J2001; J2250; J2371; J2469; J2704; J3475

== ENCOUNTER → 2023-10-13 11:52 | Outpatient (BNVA) | payer MEDICARE, SELFPAY | PROVIDERS: PCP Nurse Practitioner Family; Referring Provider Nurse Practitioner Family; Visit Provider Student in an Organized Health Care Education/Training Program | DX: Z48.817 Encounter for surgical aftercare following surgery on the skin and subcutaneous tissue (principal) ==

== ENCOUNTER → 2023-11-23 08:49 | Outpatient (BNVA) | payer MEDICARE, SELFPAY | PROVIDERS: PCP Nurse Practitioner Family; Referring Provider Nurse Practitioner Family; Visit Provider Student in an Organized Health Care Education/Training Program | DX: M17.0 Bilateral primary osteoarthritis of knee (principal); M70.51 Other bursitis of knee, right knee; M70.52 Other bursitis of knee, left knee | CPT/HCPCS: 99213 ==

== ENCOUNTER 2024-03-28 02:54 | Outpatient (CLI) | payer MEDICARE, SELFPAY ==
--- OUTSIDE RECORDS SUMMARY | 2024-03-28 02:56 | XMS_ITS | Encounter Summary ---
[place] [address] Care Team Providers Care Track Watchman Name Role Phone Heather Aguirre MD Primary Care Provider [phone] Encounter Details Date Type Department Care Team (Latest Contact Info) Description 06/15/2023 Travel Social History Tobacco Use Types Packs/Day Years Used Date Smoking Tobacco: Never Assessed Sex and Gender Information Value Date Recorded Sex Assigned at Not on file Gender Identity Not on file Sexual Orientation Not on file documented as of this encounter Plan of Treatment Not on file documented as of this encounter Visit Diagnoses Not on filedocumented in this encounter Care Teams Track Watchman Relationship Specialty Start Date End Date Heather Aguirre MD [address] [place] [address] PCP - General 07/02/10 documented as of this encounter
--- OUTSIDE RECORDS SUMMARY | 2024-03-28 02:56 | XMS_ITS | Clinical Summary ---
Author Organization [facility] Address [address] [place] [address] Care Team Providers Care Environmental Associate Name Role Phone Virgie Johnston NP Primary Care Provider [phone] Medications Medication Sig Dispensed Refills Start Date End Date Status METRONIDAZOLE (METROCREAM TOP) Apply topically as needed. 08/15/2010 Active aspirin 81 mg EC tablet Take 81 mg by mouth daily. Active ascorbic acid (VITAMIN C) 500 mg tablet Take 500 mg by mouth daily. Active estrogen, conjugated,-medroxypr ogesterone (PREMPRO) 0.3-1.5 mg per tablet Take 1 Tab by mouth every 48 hours. 08/15/2010 Active CALCIUM CARBONATE/VITAMIN D3 (CALCIUM 600 + D ORAL) Take 1 Tab by mouth daily. 08/15/2010 Active UNABLE TO FIND Med Name: Study med A By mouth 3 times a dayStudy med B by mouth daily Active MULTIVITAMIN ORAL Take 1 Tab by mouth daily. 08/15/2010 Active Active Problems Problem Noted Date Diagnosed Date Examination of participant in clinical trial 01/2011 Overview: Study drug , 09/2001 Social History Tobacco Use Types Packs/Day Years Used Date Smoking Tobacco: Never Assessed Sex and Gender Information Value Date Recorded Sex Assigned at Not on file Gender Identity Not on file Sexual Orientation Not on file Plan of Treatment Health Maintenance Due Date Last Done Comments Hepatitis C Screen 1945 RSV Immunization ( o r 60+ Years) (1 - 1-dose 60+ series) 2006 Fall Risk Screening 2011 COVID-19 Vaccine ( season) 2023 Care Teams Environmental Associate Relationship Specialty Start Date End Date Virgie Johnston NP [address] [place] [address] [address] [place] [id number] PCP - General 04/10/23
--- OUTSIDE RECORDS SUMMARY | 2024-03-28 02:56 | XMS_ITS | Encounter Summary ---
Author Organization [facility] Address [address] [place] [address] Care Team Providers Care Customer Relations Coordinator Name Role Phone Heather Aguirre MD Primary Care Provider [phone] Virgie Johnston NP Primary Care Provider [phone] Encounter Details Date Type Department Care Team (Late st Contact Info) Description 02/17/2020 Lab Requisition [facility]ology & Laboratory Medicine - [address] [id number] Outr Resulting Lab, Provider Social History Tobacco Use Types Packs/Day Years Used Date Smoking Tobacco: Never Assessed Sex and Gender Information Value Date Recorded Sex Assigned at Not on file Gender Identity Not on file Sexual Orientation Not on file documented as of this encounter Plan of Treatment Not on file documented as of this encounter Procedures Procedure Name Priority Date/Time Associated Diagnosis Comments TRANSFERRIN Routine 02/17/2020 7:45 EDT documented in this encounter Results * TRANSFERRIN (02/17/2020 7:45 EDT) Transferrin 321 201 - 352 mg/dL 02/20/2020 10:46 EDT [facility] Blood VENOUS BLOOD / Unknown 02/17/2020 7:45 EDT 02/17/2020 20:57 EDT Provider Outr Resulting Lab CHEMISTRY & BLOOD GAS ORDERABLES [facility] [address] [place] [address] documented in this encounter Visit Diagnoses Not on filedocumented in this encounter Care Teams Customer Relations Coordinator Relationship Specialty Start Date End Date Heather Aguirre MD [address] [place] [address] [place] [address] PCP - General 01/10/09 04/09/23 Virgie Johnston NP [address] [place] [address] [address] [place] [address] PCP - General 04/10/23 documented as of this encounter
--- OUTSIDE RECORDS SUMMARY | 2024-03-28 02:56 | XMS_ITS | Encounter Summary ---
Author Organization [facility] Address [address] [place] [address] Care Team Providers Care Equipment Operator [employer] Name Role Phone EduardoVirgie yu CONTRACT SHELTERED WORKSHOP SUPERVISOR Primary Care Provider [phone] Encounter Details Date Type Department Care Team (Late st Contact Info) Description 05/04/2023 Lab Requisition [facility] Pathology & Laboratory Medicine - [address] [address] Triston Seaman MD [address] [place] [phone] Diaphragmatic hernia without obstruction or gangrene Social History Tobacco Use Types Packs/Day Years Used Date Smoking Tobacco: Never Assessed Sex and Gender Information Value Date Recorded Sex Assigned at Not on file Gender Identity Not on file Sexual Orientation Not on file documented as of this encounter Plan of Treatment Not on file documented as of this encounter Procedures Procedure Name Priority Date/Time Associated Diagnosis Comments SURGICAL PATHOLOGY Today 05/04/2023 9: 07 EDT Diaphragmatic hernia without obstruction or gangrene documented in this encounter Results * SURGICAL PATHOLOGY (05/04/2023 9:07 EDT) Note to Patient The following pathology results have been interpreted by your pathologist and may be available to you before your health provider has had the opportunity to review them. Please allow time for your provider to receive these results and explore management options, if applicable. 05/08/2023 9:23 [facility] Final Diagnosis A. STOMACH, GASTRIC ANTRUM, BIOPSY: - Antral mucosa with reactive (chemical gastropathy). - No Helicobacter pylori like organisms identified on H&E stains. B. STOMACH, ULCER, BIOPSIES: - Oxyntic mucosa with superficial mucosal necrosis with mild chronic active gastritis with regenerative/react beverley epithelial changes. - Immunoperoxidase stain for Helicobacter pylori is negative. C. ESOPHAGUS, DISTAL, BIOPSIES: - Squamous mucosa with features of reflux. D. ESOPHAGUS, MID, BIOPSIES: - Polypoid squamous mucosa with papillomatous features and mild acute inflammation. See comment. 05/08/2023 9:23 [facility] Diagnosis Comment The mid esophageal biopsies (specimen D) resemble a squamous papilloma with superficial acute inflammation. PAS stain is performed on specimen D and is negative for fungal organisms. Clinical correlation is recommended. ANTIBODY(CLONE)(BL OCK):RESULT H pylori (Rabbit Monoclonal (SP48), Hyrum) (B1): Negative NOTE: One or more of the reagents used in immunoperoxidase testing in this case may not have been cleared or approved by the U.S. Food and Drug Administration (FDA). The FDA has determined that such clearance or approval is not necessary. These tests are used for clinical purposes. They should not be regarded as investigational or for research. These reagents' performance characteristics have been determined by [facility] and/or by the referring laboratory. The positive and negative controls worked appropriately. If immunoperoxidase staining has been performed on alcohol fixed cytology specimens, which has not been fully validated, the assays should be interpreted with caution and correlated with clinical data. This laboratory is certified under the Clinical Laboratory Improvement Amendments of 1988 (CLIA-88) as qualified to perform high complexity clinical laboratory testing. 05/08/2023 9:23 [facility] Attestation By the signature below, the attending physician certifies that they have 1) personally conducted a gross and/or microscopic examination of the described specimen(s), and/or personally interpreted the results of laboratory testing of the described specimen(s), and 2) personally rendered or confirmed the above diagnosis. 05/08/2023 9:23 [facility] at 0923 Clinical History Dysphagia 05/08/2023 9:23 EDT [facility] Gross Description A. Received in formalin labelled with proper patient identification (initials R, D) and antrum is a single john-brown tissue (0.4 x 0.2 x 0.2 cm). Submitted intact in A1. B. Received in formalin labelled with proper patient identification (initials R, D) and stomach ulcer are 3 john tissues (0.3 x 0.2 x 0.1 cm to 0.5 x 0.2 x 0.2 cm). Submitted entirely in B1. C. Received in formalin labelled with proper patient identification (initials R, D) and distal esophagus are 2 john-white tissues (each 0.3 x 0.2 x 0.2 cm). Submitted entirely in C1. D. Received in formalin labelled with proper patient identification (initials R, D) and mid esophagus are 2 john-white tissues (0.2 x 0.1 x 0.1 cm and 0.4 x 0.2 x 0.1 cm). Submitted entirely D1. AVIS PHAM(ASCP) 05/05/2023 8:02 05/08/2023 9:23 EDT [facility] Performing Lab [facility] 9:23 EDT [facility] Scanned Images 05/08/2023 9:23 T [facility] Tissue ESOPHAGEAL STRUCTURE / Unknown 05/04/2023 9:07 EDT 05/04/2023 18:46 EDT Tissue specimen (specimen) STOMACH STRUCTURE / Unknown 05/04/2023 9:07 EDT 05/04/2023 18:46 EDT Tissue specimen (specimen) ESOPHAGEAL STRUCTURE / Unknown 05/04/2023 9:07 EDT 05/04/2023 18:46 EDT Tissue specimen (specimen) ESOPHAGEAL STRUCTURE / Unknown 05/04/2023 9:07 EDT 05/04/2023 18:46 EDT Triston Seaman MD PATHOLOGY ORDERABLES [facility] [address] [place] [address] documented in this encounter Visit Diagnoses Diagnosis Diaphragmatic hernia without obstruction or gangrene Diaphragmatic hernia without mention of obstruction or gangrene documented in this encounter Care Teams Equipment Operator [employer] Yard Relationship Specialty Start Date End Date Virgie Johnston NP [address] [place], [place] [address]Y [address] [place] [phone] PCP - General 04/10/23 documented as of this encounter
--- OUTSIDE RECORDS SUMMARY | 2024-03-28 02:56 | XMS_ITS | Encounter Summary ---
Author Organization [facility] Address [address] [place] [address] Care Team Providers Care Layout Technician Name Role Phone Heather Flowers MD Primary Care Provider [phone] Encounter Details Date Type Department Care Team (Late st Contact Info) Description 11/04/2011 Results Only [facility] - [facility] ([facility] [address] [place], [place] [address] Heather Flowers MD [address] [place] [id number] Social History Tobacco Use Types Packs/Day Years Used Date Smoking Tobacco: Never Assessed Sex and Gender Information Value Date Recorded Sex Assigned at Not on file Gender Identity Not on file Sexual Orientation Not on file documented as of this encounter Plan of Treatment Not on file documented as of this encounter Procedures Procedure Name Priority Date/Time Associated Diagnosis Comments PAP TEST- RESULT ONLY Routine 11/04/2011 0:00 EDT documented in this encounter Results * PAP TEST- RESULT ONLY (11/04/2011 0:00 EDT) Pathology Report: CYTOPATHOLOGY REPORT Reports generated via electronic interface contain original data; however they are lacking the format of the original report. Caution should be taken when reading/interpreti ng unformatted reports. Name: ? JAMILA AUGUSTIN ? Accession #: ? [id number] : ? 1945 (Age: 66) ??F ?Collect Date: ? 11/04/2011 Location: ? [facility] ? Receive Date: ? 11/05/2011 Provider: ?HEATHER FLOWERS MD Copy to: ? Specimen/Source: ?Pap Test, Cervix/Endocervix, ThinPrep Imaging System with manual evaluation Last Menstrual Period: ? Menstrual/Pregnanc y Status: ? Post Menopausal Hormonal/Contracep tive Status: ? Prempro ? SPECIMEN ADEQUACY ? Satisfactory for Evaluation - transformation zone component absent GENERAL CATEGORIZATION ? Negative for Intraepithelial Lesion or Malignancy ? Document reviewed and electronically signed by: ? YOSHI Torres(ASCP) ? Report Date: ??11/06/2011 12:09 End of Report [facility] 11/04/2011 11/05/2011 Heather Flowers MD PATHOLOGY ORDERABLES [facility] [address] [place] [address] documented in this encounter Visit Diagnoses Not on filedocumented in this encounter Care Teams Layout Technician Relationship Specialty Start Date End Date Heather Flowers MD [address] [place] [address] [place] [address] PCP - General 01/10/09 04/09/23 documented as of this encounter
--- OUTSIDE RECORDS SUMMARY | 2024-03-28 02:56 | XMS_ITS | Encounter Summary ---
Author Organization [facility] Address [address] [place] [address] Care Team Providers Care Optometry Assistant Name Role Phone Heather Aguirre MD Primary Care Provider [phone] Encounter Details Date Type Department Care Team (Late st Contact Info) Description 10/07/2001 Results Only [facility] - [address] [address] Cole Grier MD [facility] [address] [place], [place] [address] Social History Tobacco Use Types Packs/Day Years Used Date Smoking Tobacco: Never Assessed Sex and Gender Information Value Date Recorded Sex Assigned at Not on file Gender Identity Not on file Sexual Orientation Not on file documented as of this encounter Plan of Treatment Not on file documented as of this encounter Procedures Procedure Name Priority Date/Time Associated Diagnosis Comments ZZHEMOGLOBIN A1C Routine 10/07/2001 15:3 6 EST documented in this encounter Results * HEMOGLOBIN A1C (10/07/2001 15:36 EST) POCT Hgb A1C 5.7 4.5 - 5.7 % [facility] Comment:Test Performed at [facility] 10/07/2001 15:3 6 EST 10/08/2001 15:36 EST Cole Grier MD CHEMISTRY & BLOOD GA S ORDERABLES [facility] [address] [place] [address] documented in this encounter Visit Diagnoses Not on filedocumented in this encounter Care Teams Optometry Assistant Relationship Specialty Start Date End Date Heather Aguirre MD [facility] [facility] [place] [address] PCP - General 01/10/09 04/09/23 documented as of this encounter
--- OUTSIDE RECORDS SUMMARY | 2024-03-28 02:56 | XMS_ITS | Clinical Summary ---
[place] [address] Care Team Providers Care [employer] Officer Name Role Phone Heather Aguirre MD Primary Care Provider [phone] Allergies No known active allergies Medications Medication Sig Dispensed Refills Start Date End Date Status CIS Free Text Med - Aspirin 04/17/2010 Active hydrochlorothiazide (HYDRODIURIL) 25 mg tablet 04/17/2010 Active estrogen, conjugated,-medroxyproge sterone (PREMPRO) 0.3-1.5 mg per tablet 04/17/2010 Act beverley multivitamin capsule 04/17/2010 Acti ve LISINOPRIL ORAL 04/17/2010 Active estradiol (ESTRACE) 0.01 % (0.1 mg/g) vaginal cream 1 gm, Vag, 2X/week hs 04/17/2010 Active Active Problems Problem Noted Date Diagnosed Date CIS - Entered not Verified 01/30/2010 CIS - Hyperlipidemia CIS - Hypertension CIS - Low back pain with sciatica Overview (10/15/2010): In August (2009), improving CIS - uterovaginal prolapse, stage 3 Overview (10/15/2010): involving the apex, posterior vagina Immunizations Name Administration Dates Next Due Pneumococcal Polysaccharide (Pneumovax 23) 09/20 TD Adult 11/21/2003 Social History Tobacco Use Types Packs/Day Years Used Date Smoking Tobacco: Never Assessed Sex and Gender Information Value Date Recorded Sex Assigned at Not on file Gender Identity Not on file Sexual Orientation Not on file Plan of Treatment Health Maintenance Due Date Last Done Comments Hepatitis C Screening 1964 Tdap adult 1965 Zoster vaccine (1 of 2) 1996 Advance Directive 2001 Bone Density Scan 2011 Pneumoccocal Vaccine: 65+ (2 of 2 - PCV) 2011 09/20/2003 Tetanus vaccine 11/20/2013 11/21/2003 Covid-19 Vaccine (1 - 2022- season) 2023 Influenza (Flu) vaccine (1 o f 1 - Influenza standard series) 04/10/2024 Care Teams [employer] Officer Relationship Specialty Start Date End Date Heather Aguirre MD [address] [place], [place] [id number] PCP - General 07/02/10
--- OUTSIDE RECORDS SUMMARY | 2024-03-28 02:56 | XMS_ITS | Referral Summary ---
Author Organization [facility] Address [address] [place] [address] Care Team Providers Care Senior Audit Manager Name Role Phone Virgie Johnston NP Primary Care Provider [phone] Medications Medication Sig Dispensed Refills Start Date [...] Orientation Not on file Plan of Treatment Not on file Care Teams Senior Audit Manager Relationship Specialty Start Date End Date Virgie Johnston NP [address] [place] [address] [address] [place] [phone] PCP - General 04/10/23
--- OUTSIDE RECORDS SUMMARY | 2024-03-28 02:56 | XMS_ITS | Encounter Summary ---
[place] [address] Care Team Providers Care Matrix Drier Tender Name Role Phone Heather Aguirre MD Primary Care Provider [phone] Encounter Details Date Type Department Care Team (Latest Contact Info) Description 06/13/2023 Travel Social History Tobacco Use Types Packs/Day Years Used Date Smoking Tobacco: Never Assessed Sex and Gender Information Value Date Recorded Sex Assigned at Not on file Gender Identity Not on file Sexual Orientation Not on file documented as of this encounter Plan of Treatment Not on file documented as of this encounter Visit Diagnoses Not on filedocumented in this encounter Care Teams Matrix Drier Tender Relationship Specialty Start Date End Date Heather Aguirre MD [address] [place] [address] PCP - General 07/02/10 documented as of this encounter
--- OUTSIDE RECORDS SUMMARY | 2024-03-28 02:56 | XMS_ITS | Encounter Summary ---
[place] [address] Care Team Providers Care Charging Car Operator Name Role Phone Heather Aguirre MD Primary Care Provider [phone] Reason for Visit * Diagnostic Test (Routine) - Closed Specialty Diagnoses / Procedures Referred By Rachel tarango Referred To Contact Gastroenterology Diagnoses Dysphagia, unspecified type HREM - dysphagia Procedures High Resolution Esophageal Manometry PRG ESOPHAGEAL MOTILITY STUDY Triston Seaman MD [address] [place] [phone] [facility] [address] [place] [id number] Referral ID Status Reason Start Date Expiration Date V isits Requested Visits Authorized [id number] Closed Test Only 05/28/2023 05/27/2024 1 1 Encounter Details Date Type Department Care Team (Latest Contact Info) Description 06/15/2023 2:00 PM EST Procedure visit [place] [address] Dysphagia, unspecified type Social History Tobacco Use Types Packs/Day Years Used Date Smoking Tobacco: Never Assessed Sex and Gender Information Value Date Recorded Sex Assigned at Not on file Gender Identity Not on file Sexual Orientation Not on file documented as of this encounter Progress Notes * Gisselle Duarte RN - 06/15/2023 2:00 PM EST A description of the esophageal manometry procedure was provided to the patient. All questions wereanswered and the patient verbalized understanding. The HREM catheter was placed via the left naris without difficulty. The esophageal manometry procedure was performed and the catheter was removed. The patient tolerated the procedure well. * Marcellus Hennessy MD - 06/15/2023 2:00 PM EST Images from the original note were not included. HIGH-RESOLUTION ESOPHAGEAL MANOMETRY PROCEDURE NOTE Patient: Beata Hood [address]: [address] [place] [id number] : 1945 Date of service: 06/15/2023 Indication: Dysphagia Procedure: The patient arrived after an overnight fast. After verbal consent, a Jackelin motility catheter with 36 circumferential sensors on 1 cm spacing with impedance sensors was inserted transnasally after application of topical anesthesia to the nasal passage. The catheter was positioned so that at least 2distal sensors were in the stomach and 2 proximal sensors were located above the UES. A 3-5 minute a cclimation period was provided followed by 10 wet swallows of 5 cc of water while supine. Normal values while supine: Upper esophageal sphincter residual pressure: < 12 mmHg Upper esophageal sphincter relaxation duration: > 480 msec Distal contractile integral (DCI): > 450 and < 8,000 mmHg x cm x s Distal latency time: > 4.5 sec Integrated EGJ relaxation pressure (IRP): < 15 mmHg Normal EGJ resting pressure (respiratory mean): 15-34 mmHg Findings: - Upper Esophageal Sphincter: normal mean residual pressure and relaxation duration - Body: N/a% of swallows failed. N/a% of swallows had premature contractions with shortened distal latency time. The remaining n/a% of swallows were peristaltic, including: N/a% of swallows with hypercontractility, N/a% of swallows with weak peristalsis, and N/a% of swallows with large breaks (>5 cm) in the 20mmHg isocontour line. - Esophagogastric Junction: Midpoint located n/a cm from the nares, and proximal extent located at n/a cm. Shellfish Meat Separator Operator swallow: Impressions based on [place] Classification v4.0: The catheter tip did not pass through the diaphragm so accurate assessment of the lower esophageal sphincter could not be completed. There is evidence of preserved esophageal peristalsis ruling out achalasia. If assessment of the lower esophageal sphincter function is needed please contact us to arrange a repeat study. *These findings assume that mechanical obstruction has been ruled out. Marcellus Hennessy MD, FRCPC Section of Gastroenterology and Hepatology [facility] [place] [address] [address] V: [phone] F: [phone] CC/EC: Heather Aguirre MD [address] [place] [address] documented in this encounter Plan of Treatment Not on file documented as of this encounter Visit Diagnoses Diagnosis Dysphagia, unspecified type documented in this encounter Care Teams Charging Car Operator Relationship Specialty Start Date End Date Heather Aguirre MD [address] [place], [place] [id number] PCP - General 07/02/10 documented as of this encounter
--- OUTSIDE RECORDS SUMMARY | 2024-03-28 02:56 | XMS_ITS | Encounter Summary ---
Author Organization [facility] Address [address] [place] [address] Care Team Providers Care Sawmill Equipment Operator Name Role Phone Heather Aguirre MD Primary Care Provider [phone] Encounter Details Date Type Department Care Team (Late st Contact Info) Description 10/06/2008 Before PRISM Converted Visit (Maple) [facility] - Maple conversion [address] [place] [address] Heather Aguirre MD [address] [place] [phone] Social History Tobacco Use Types Packs/Day Years Used Date Smoking Tobacco: Never Assessed Sex and Gender Information Value Date Recorded Sex Assigned at Not on file Gender Identity Not on file Sexual Orientation Not on file documented as of this encounter Plan of Treatment Not on file documented as of this encounter Procedures Procedure Name Priority Date/Time Associated Diagnosis Comments HPV DETECTION, HIGH RISK TYPES Routine 10/06/2008 11:08 EST CYTOPATHOLOGY Routine 10/06/2008 0:00 EST documented in this encounter Results * HUMAN PAPILLOMA VIRUS DNA TEST (10/06/2008 11:08 EST) Specimen Description Cervix, ThinPrep vial [facility] Result Negative for HPV types 16, 18, 31, 33, 35, 39, 45, 51, 52, 56, 58, 59, and 68. [facility] Report Status Final 10/19/2008 [facility] 10/06/2008 11:0 8 EST 10/11/2008 11:08 EST Heather Aguirre MD MICROBIOLOGY - GENER AL ORDERABLES [facility] [address] [place] [address] * CYTOPATHOLOGY (10/06/2008 0:00 EST) Pathology Report: CYTOPATHOLOGY REPORT ? Reports generated via electronic interface contain original data; ? however they are lacking the format of the original report. ? Caution should be taken when reading/interpreti ng unformatted reports. ? Name: ? JAMILA HOOD ? Accession #: ? [id number] ? : ? 1945 (Age: 63) ??F ?Collect Date: ? 10/06/2008 ? Location: ? [facility] ? Receive Date: ? 10/09/2008 ? Provider: ?HEATHER TERIAN MD ? Copy to: ? Specimen/Source: ?Pap Test, Cervix/Endocervix, ThinPrep Imaging System ? with manual evaluation ? Last Menstrual Period: ? Menstrual/Pregnanc y Status: ? Post Menopausal ? Hormonal/Contracep tive Status: ? Prempro ? Other: ? HPVDX - HPV testing requested regardless of diagnosis on current ThinPrep Pap ?? test. ? SPECIMEN ADEQUACY ? Satisfactory for Evaluation ? - transformation zone component absent ? GENERAL CATEGORIZATION ? Negative for Intraepithelial Lesion or Malignancy ? Document reviewed and electronically signed by: ? Judith Rony, [place](ASCP) ? Report Date: ??10/10/2008 13:04 ? End of Report ? [facility] 10/06/2008 10/09/2008 Heather Aguirre MD PATHOLOGY ORDERABLES Performing Organization Address City/State/[facility] Co de Phone Number [facility] [address] [place] [address] documented in this encounter Visit Diagnoses Not on filedocumented in this encounter Care Teams Sawmill Equipment Operator Relationship Specialty Start Date End Date Heather Aguirre MD [address] [place] [address] [place] [address] PCP - General 01/10/09 04/09/23 documented as of this encounter
--- OUTSIDE RECORDS SUMMARY | 2024-03-28 02:56 | XMS_ITS | Encounter Summary ---
[place] [address] Care Team Providers Care Tube Room Cashier Name Role Phone Heather Aguirre MD Primary Care Provider [phone] Reason for Referral * Diagnostic Test (Routine) - Closed Specialty Diagnoses / Procedures Referred By Contac t Referred To Contact Gastroenterology Diagnoses Dysphagia, unspecified type HREM - dysphagia Procedures High Resolution Esophageal Manometry PRG ESOPHAGEAL MOTILITY STUDY Triston Seaman MD [address] [place] [phone] [facility] [place] [address] Referral ID Status Reason Start Date Expiration Date V isits Requested Visits Authorized [id number] Closed Test Only 05/28/2023 05/27/2024 1 1 Encounter Details Date Type Department Care Team (Late st Contact Info) Description 05/28/2023 Transcribe Orders eDH Incoming Referrals [phone] Triston Seaman MD [address] [place] [address] [address] ARTHUR [address] [place] [phone] Dysphagia, unspecified type Social History Tobacco Use Types Packs/Day Years Used Date Smoking Tobacco: Never Assessed Sex and Gender Information Value Date Recorded Sex Assigned at Not on file Gender Identity Not on file Sexual Orientation Not on file documented as of this encounter Plan of Treatment Scheduled Orders Name Type Priority Associated Diagnoses Orde r Schedule High Resolution Esophageal Manometry GI Routine Dysphagia, Unspecified Type Expected: 05/28/2023, Expires: 11/26/2024 documented as of this encounter Visit Diagnoses Diagnosis Dysphagia, unspecified type documented in this encounter Care Teams Tube Room Cashier Relationship Specialty Start Date End Date Heather Aguirre MD [address] [place] [phone] PCP - General 07/02/10 documented as of this encounter
--- OUTSIDE RECORDS SUMMARY | 2024-03-28 02:56 | XMS_ITS | Encounter Summary ---
Author Organization [facility] Address [address] [place] [address] Care Team Providers Care Tape Editor Name Role Phone Heather Aguirre MD Primary Care Provider [phone] Encounter Details Date Type Department Care Team (Late st Contact Info) Description 08/15/2010 Abstract Used for ABSTRACTING Data [phone] Heather Aguirre MD [address] [place] [phone] Social History Tobacco Use Types Packs/Day Years Used Date Smoking Tobacco: Never Assessed Sex and Gender Information Value Date Recorded Sex Assigned at Not on file Gender Identity Not on file Sexual Orientation Not on file documented as of this encounter Plan of Treatment Not on file documented as of this encounter Visit Diagnoses Not on filedocumented in this encounter Historical Medications * This list may reflect changes made after this encounter. Medication Sig Dispensed Refills Start Date End Date MULTIVITAMIN ORAL Take 1 Tab by mouth daily. 08/15/2010 UNABLE TO FIND Med Name: Study med A By mouth 3 times a dayStudy med B by mouth daily CALCIUM CARBONATE/VITAMIN D3 (CALCIUM 600 + D ORAL) Take 1 Tab by mouth daily. 08/15/2010 estrogen, conjugated,-medroxyproge sterone (PREMPRO) 0.3-1.5 mg per tablet Take 1 Tab by mouth every 48 hours. 08/15/2010 ascorbic acid (VITAMIN C) 500 mg tablet Take 500 mg by mouth daily. aspirin 81 mg EC tablet Take 81 mg by mouth daily. METRONIDAZOLE (METROCREAM TOP) Apply topically as needed. 08/15/2010 added in this encounter Care Teams Tape Editor Relationship Specialty Start Date End Date Heather Aguirre MD [address] [place] [address] [place] [address] PCP - General 01/10/09 04/09/23 documented as of this encounter
--- OUTSIDE RECORDS SUMMARY | 2024-03-28 02:56 | XMS_ITS | Encounter Summary ---
Author Organization [facility] Address [address] [place] [address] Care Team Providers Care Outboard Motor Inspector Name Role Phone Heather Flowers MD Primary Care Provider [phone] Encounter Details Date Type Department Care Team (Late st Contact Info) Description 09/30/2007 Results Only [facility] - Maple conversion [address] [place] [address] Heather Flowers MD [address] [place] [phone] Social History Tobacco Use Types Packs/Day Years Used Date Smoking Tobacco: Never Assessed Sex and Gender Information Value Date Recorded Sex Assigned at Not on file Gender Identity Not on file Sexual Orientation Not on file documented as of this encounter Plan of Treatment Not on file documented as of this encounter Procedures Procedure Name Priority Date/Time Associated Diagnosis Comments CYTOPATHOLOGY Routine 09/30/2007 0:00 EST documented in this encounter Results * CYTOPATHOLOGY (09/30/2007 0:00 EST) Pathology Report: CYTOPATHOLOGY REPORT Reports generated via electronic interface contain original data; however they are lacking the format of the original report. Caution should be taken when reading/interpreti ng unformatted reports. Name: ? JAMILA AUGUSTIN ? Accession #: ? [id number] : ? 1945 (Age: 62) ??F ?Collect Date: ? 09/30/2007 Location: ? [facility] ? Receive Date: ? 10/04/2007 Provider: ?HEATHER FLOWERS MD Copy to: ? Specimen/Source: ?ThinPrep Pap Test, Endocervix, processed on [employer] ThinPrep Imaging System, with manual evaluation Last Menstrual Period: ? Menstrual/Pregnanc y Status: ? Menopausal Hormonal/Contracep tive Status: ? Yes Other: ? HPVA - HPV testing requested if ASC-US on the current ThinPrep Pap test. ? SPECIMEN ADEQUACY ? Satisfactory for Evaluation - transformation zone component present GENERAL CATEGORIZATION ? Negative for Intraepithelial Lesion or Malignancy ? Document reviewed and electronically signed by: ? Pablo Hoyos, YOSHI(ASCP) ? Report Date: ??10/06/2007 10:23 End of Report [facility] 09/30/2007 10/04/2007 Heather Flowers MD PATHOLOGY ORDERABLES [facility] [address] [place] [address] documented in this encounter Visit Diagnoses Not on filedocumented in this encounter Care Teams Outboard Motor Inspector Relationship Specialty Start Date End Date Heather Flowers MD [address] [place] [address] [place] [address] PCP - General 01/10/09 04/09/23 documented as of this encounter
--- NOTE | 2024-03-28 07:15 | DI.MAMMO_ITS ---
Exam(s) MAMMO SCREENING EXAM: MAMMO SCREENING CLINICAL HISTORY: screening,Z12.39 TECHNIQUE: Mammograms were interpreted according to the usual protocol including computer analysis w E-nterview CAD system, tomosynthesis and C-view imaging. COMPARISON: 2014 through 2022 FINDINGS: The breasts are composed of scattered fibroglandular densities, Breast Density category B. No suspicious masses or suspicious microcalcifications are seen. Stable nodules in the right breast. No skin thickening or abnormal axillary lymph nodes are seen. There has been no significant change from prior exams. IMPRESSION: BI-RADS Category 2 - Benign Findings Yearly screening mammography is recommended. Breast Density - Category B, scattered fibroglandular densities. A negative radiographic report should not delay biopsy if a dominant or clinically suspicious mass is present. Up to ten percent of cancers are not identified on mammography. A negative report may reinforce clinical impression. Adenosis and dense breasts may obscure an underlying neoplasm. False positive reports average 6 to 10%. Patient will receive a letter notifying them of these results.
== END 2024-03-28 03:14 ==
LOC: DI 02:54
PROVIDERS: PCP Nurse Practitioner Family; Visit Provider Nurse Practitioner Family
DX: Z12.31 Encounter for screening mammogram for malignant neoplasm of breast (principal)
CPT/HCPCS: 77063; 77067

== ENCOUNTER → 2024-05-23 09:52 | Outpatient (BNVA) | payer MEDICARE, SELFPAY | PROVIDERS: PCP Nurse Practitioner Family; Visit Provider Student in an Organized Health Care Education/Training Program | DX: M17.0 Bilateral primary osteoarthritis of knee (principal); M70.51 Other bursitis of knee, right knee; M70.52 Other bursitis of knee, left knee | CPT/HCPCS: 99213 ==

== ENCOUNTER → 2024-06-27 09:12 | Outpatient (BNVA) | payer MEDICARE, SELFPAY | PROVIDERS: PCP Nurse Practitioner Family; Referring Provider Nurse Practitioner Family; Visit Provider Student in an Organized Health Care Education/Training Program | DX: M17.11 Unilateral primary osteoarthritis, right knee (principal); M17.12 Unilateral primary osteoarthritis, left knee | CPT/HCPCS: 99213 ==

== ENCOUNTER → 2024-08-25 09:17 | Outpatient (BNVA) | payer MEDICARE, SELFPAY | PROVIDERS: PCP Nurse Practitioner Family; Referring Provider Nurse Practitioner Family; Visit Provider Student in an Organized Health Care Education/Training Program | DX: G56.01 Carpal tunnel syndrome, right upper limb (principal); M17.11 Unilateral primary osteoarthritis, right knee; M17.12 Unilateral primary osteoarthritis, left knee | CPT/HCPCS: 99213 ==

== ENCOUNTER → 2025-01-16 08:26 | Outpatient (BNVA) | payer MEDICARE, SELFPAY | PROVIDERS: PCP Nurse Practitioner Family; Referring Provider Nurse Practitioner Family; Visit Provider Student in an Organized Health Care Education/Training Program | DX: M17.0 Bilateral primary osteoarthritis of knee (principal); M65.331 Trigger finger, right middle finger | CPT/HCPCS: 99213 ==

== ENCOUNTER 2025-03-27 10:28 | Emergency (ER) | payer MEDICARE, SELFPAY ==
[2025-03-27] VITALS (17 sets, daily range): BP systolic 160–204; BP diastolic 71–105; PULSE 62–87; RESP 14–22; TEMP 36.4; O2SAT 90–98
--- NOTE | 2025-03-27 10:30 | DI.CT_ITS ---
Exam(s) CT ABDOMEN PELVIS W EXAM: CT ABDOMEN PELVIS W CLINICAL HISTORY: left lower abdomen and back pain. TECHNIQUE: Imaging Protocol: Axial computed tomography images with coronal and sagittal reformatted images were created and reviewed CONTRAST MATERIAL: Intravenous: Omnipaque-350 75cc Oral: None COMPARISON: CT CT ABDOMEN PELVIS W from 07/20/[address] CHEST PE CTA from 07/20/2022 FINDINGS: VISUALIZED LUNG BASES: No nodules nor pleural effusions evident. ABDOMEN: There is no ascites. LIVER: There are no focal hepatic lesions evident. No dilated intrahepatic ducts. GALLBLADDER/BILIARY: No obvious gallbladder pathology. CBD is not dilated. PANCREAS: No evidence of pancreatic mass nor dilatation of the pancreatic duct. SPLEEN: Spleen is not enlarged. No obvious intrasplenic lesions. Splenic and portal veins are patent. ADRENALS: There are no significant adrenal masses. KIDNEYS:Multiple benign cysts again noted in both kidneys which do not require further workup. There are no solid renal masses. There is bilateral nephrolithiasis with small calculi seen in both kidneys. However, 1 of the calculi on the left side is migrated to the upper left ureter and is at the UPJ where there is surrounding streaking and mild hydronephrosis above this level. The ureter below this level is not dilated. There are no calculi in the lower ureter nor in the urinary bladder lumen.. No hydronephrosis on the opposite- right side. ABDOMINAL AORTA: Peripherally calcified but not enlarged. LYMPH NODES:There is no retroperitoneal nor paraaortic adenopathy. ABDOMINAL WALL: There is a E right-sided inguinal hernia which contains multiple small bowel loops. This was not evident in 2021. There is no bowel obstruction. PELVIS: GI: No evidence of appendicitis.There is extensive sigmoid diverticulosis. No obvious acute diverticulitis. LYMPH NODES: There is no intrapelvic nor inguinal adenopathy. REPRODUCTIVE: Uterus is anteverted. Uterine size is age-appropriate. No significant adnexal masses. No free fluid in the pelvis. There is a pessary in place in the upper vagina. URINARY BLADDER: No calculi nor obvious masses evident OSSEOUS: Multilevel chronic degenerative disc disease. No fractures. No listhesis. No significant osseous lesions. IMPRESSION: 1. Bilateral nephrolithiasis. In addition, there is an obstructing calculus in the upper left ureter measuring 4 mm, this at the UPJ level. There is mild hydronephrosis above this level and there is avery ureteral streaking. 2. There are no calculi in the lumen of the urinary bladder. 3. Extensive sigmoid diverticulosis but no evidence of acute diverticulitis. 4. Prominent right-sided inguinal hernia which contains small bowel loops. There is no evidence of bowel obstruction. No free air. No ascites. Report called by myself to ER physician 03/27/2025 at 12:05 p.m. RADIATION DOSE DELIVERED: 620.81mGy.cm Total DLP DATA REPOSITORY: All CT scans at this facility are submitted to the National Radiology Data Registry (NRDR) Dose Index Registry (DIR) with the [employer] (ACR). RADIATION OPTIMIZATION: All CT scans at this facility use at least one of these dose optimization techniques: automated exposure control; mA and/or kV adjustment per patient size (includes targeted exams where dose is matched to clinical indication); or iterative reconstruction.
--- NOTE | 2025-03-27 10:45 | W.ED.GENAD ---
Discharge Plan Disposition Patient Disposition: Home Condition: Stable Discharge Details Clinical Impression: Kidney stone, Inguinal hernia Primary Care Provider: Virgie Johnston ED Provider: Marcellus Parra Home Meds and New Rx's Prescriptions: New ondansetron 4 mg tablet,disintegrating 4 mg PO Q8H PRN (Reason: nausea and vomiting) Qty: 30 0RF ketorolac 10 mg tablet 10 mg PO Q6H PRNQty: 20 0RF Rx Instructions: maximum total duration of 5 days from all oral, intranasal, or parenteral formulations Continued calcium carbonate [Calcium 600] 600 mg calcium (1,500 mg) tablet 600 mg PO BID glucosamine-chondroitin [Osteo Bi-Flex] 250-200 mg tablet 2 tab PO ONCE lisinopril 40 mg tablet 40 mg PO DAILY Qty: 90 3RF hydrochlorothiazide 12.5 mg tablet 12.5 mg PO DAILY Qty: 90 3RF atorvastatin [Lipitor] 10 mg tablet 10 mg PO HS Qty: 90 3RF Held celecoxib [Celebrex] 200 mg capsule 200 mg PO DAILY Qty: 30 3RF Hold Instructions: Resume on 04/02/25. Rx Instructions: Take one tablet daily for pain and inflammation No Action aspirin 81 mg tablet,delayed release (DR/EC) 81 mg PO DAILY Patient Comments: last dose 09/04/23 alendronate [Fosamax] 70 mg tablet 70 mg PO QWEEK Qty: 14 3RF Patient Comments: last dose 09/06/23 multivitamin [One Daily] 1 EACH tablet 1 tab PO DAILY ascorbic acid (vitamin C) [Vitamin C] 500 MG tablet 500 mg PO DAILY Patient Comments: last dose 09/04/23 Discharge Instructions Additional Instructions: You have a 4 mm kidney stone on the left side. While you are taking the ketorolac I would recommend holding your celecoxib. You should receive a follow-up appointment for urology. You can also take 1000 mg of acetaminophen every 6 hours as needed, do not exceed 2000 mg in a 24-hour period. If you feel more ill or have new symptoms such as persistent vomiting or high fevers return to the emergency room for reevaluation HPI General Mode of arrival: ambulatory. Date/Time Provider Initiated Documentation: 03/27/25 10:28. Limitations to Documentation: no limitations. Information obtained by: patient. History of Present Illness 79 year old F presents to the emergency department with the chief complaint of left sided abdomen and back pain, described as moderate, Quality is described as sharp, and is localized to the abdomen. and it has been constant. No relieving factors improve symptom(s), No exacerbating factors reported . Patient notes denies chest pain and fever/chills. Patient did receive the following treatments prior to arrival, none Related Data Home Medications ?Medication ?Instructions ?Recorded ?Confirmed ascorbic acid (vitamin C) 500 mg 500 mg PO DAILY 11/03/12 03/27/25 tablet (Vitamin C) multivitamin (One Daily tablet) 1 tab PO DAILY 11/03/12 03/27/25 aspirin 81 mg tablet,delayed 81 mg PO DAILY 01/15/20 03/27/25 release calcium carbonate (Calcium 600) 600 mg PO BID 04/09/23 03/27/25 glucosamine-chondroitin 250 mg-200 2 tab PO ONCE 04/09/23 03/27/25 mg tablet (Osteo Bi-Flex) celecoxib 200 mg capsule (Celebrex) 200 mg PO DAILY #30 caps 11/25/24 03/27/25 Held on 03/27/25. Instructions: Resume on 04/02/25. alendronate 70 mg tablet (Fosamax) 70 mg PO QWEEK #14 tabs 02/02/25 03/27/25 atorvastatin 10 mg tablet (Lipitor) 10 mg PO HS #90 tabs 02/02/25 03/27/25 hydrochlorothiazide 12.5 mg tablet 12.5 mg PO DAILY #90 tabs 02/02/25 03/27/25 lisinopril 40 mg tablet 40 mg PO DAILY #90 tabs 02/02/25 03/27/25 ketorolac 10 mg tablet 10 mg PO Q6H PRN #20 tabs 03/27/25 ondansetron 4 mg disintegrating 4 mg PO Q8H PRN nausea and 03/27/25 tablet vomiting #30 tabs Previous Rx's ?Medication ?Instructions ?Recorded celecoxib 200 mg capsule (Celebrex) 200 mg PO DAILY #30 caps 11/25/24 Held on 03/27/25. Instructions: Resume on 04/02/25. alendronate 70 mg tablet (Fosamax) 70 mg PO QWEEK #14 tabs 02/02/25 atorvastatin 10 mg tablet (Lipitor) 10 mg PO HS #90 tabs 02/02/25 hydrochlorothiazide 12.5 mg tablet 12.5 mg PO DAILY #90 tabs 02/02/25 lisinopril 40 mg tablet 40 mg PO DAILY #90 tabs 02/02/25 ketorolac 10 mg tablet 10 mg PO Q6H PRN #20 tabs 03/27/25 ondansetron 4 mg disintegrating 4 mg PO Q8H PRN nausea and 03/27/25 tablet vomiting #30 tabs Allergies Allergy/AdvReac Type Severity Reaction Status Date / Time No Known Allergies Allergy Verified 03/27/25 10:32 General Stated Complaint: FlankPain JEN: 3 Review of Systems All systems reviewed & are unremarkable except as noted in HPI and below Constitutional Constitutional: Denies chills and Denies fever(s) Cardiovascular Cardiovascular: Denies chest pain and Denies dyspnea Respiratory Respiratory: Denies cough and Denies dyspnea Gastrointestinal Gastrointestinal: Reports abdominal pain, Reports nausea and Denies vomiting Musculoskeletal Musculoskeletal: Reports back pain Exam Const General: no acute distress Orientation: alert [facility] Head: normal to inspection Ears: external ears normal General nose exam: external nose normal Mouth: moist mucous membranes Eyes General: appearance normal, both eyes and all related structures Neck Neck: normal visual inspection Resp Effort & Inspection: normal respiratory effort and able to speak in complete sentences Cardio Rate: regular rate GI Palpation: soft, not firm, no guarding and tender Back/Spine/Pelvis Back: no CVA tenderness Skin General skin exam: no rashes or lesions noted Neuro General: patient alert and patient oriented x3 Extrem General: normal to inspection Psych Mental Status: mental status grossly normal Course Vital Signs Vital signs: Vital Signs Temperature 36.4 C 03/27/25 10:29 Pulse 77 03/27/25 10:29 Respiratory Rate 16 03/27/25 10:29 Blood Pressure 188/105 H 03/27/25 10:29 Pulse Oximetry 98 03/27/25 10:29 Temperature 36.4 C 03/27/25 10:41 Temperature Source Oral 03/27/25 10:41 Pulse 77 03/27/25 10:41 Respiratory Rate 16 03/27/25 10:41 Blood Pressure 188/105 H 03/27/25 10:41 Blood Pressure Position Sitting 03/27/25 10:41 Pulse Oximetry 98 03/27/25 10:41 Oxygen Delivery Method Room Air 03/27/25 10:41 Oxygen Flow Rate 0 03/27/25 10:41 Pain Level 8 03/27/25 10:41 Medical Decision Making 79-year-old female with a history of hypertension comes in with acute onset left lower back and abdominal pain. She says she also has nausea. She says that yesterday she felt fine and then she was sitting at a computer today when the pain started. She denies any vomiting, no chest pain, no difficulty breathing, no fevers. She has tenderness in the left lower quadrant without guarding and localizes the pain in the left lower back. She has no saddle anesthesia. There is no leg swelling and she has intact sensation and pulses in her legs. Given location of pain will obtain CBC, CMP and lipase and also a CT abdomen pelvis to evaluate for possible kidney stone versus diverticulitis Labs unremarkable, no evidence of urinary tract infection. She does have a 4 mm left-sided UPJ stone. She is feeling significantly better. She also has a right inguinal hernia but she has actually no tenderness or pain here so I do not feel this is related to her pain and she states she was already aware of this and was told there is nothing to be concerned about unless it causes pain. She will follow-up with her PCP regarding this.. She is feeling significantly better and I feel she can be managed in outpatient. Will provide her with a urology referral as well. Return precautions given Differential Diagnosis Differential Diagnosis: Kidney stone, diverticulitis Lab Data Lab results reviewed: Yes I reviewed the patient's lab results. PFSH All Active Problems (Updated 03/27/25 @ 13:18 by Marcellus Parra MD) Inguinal hernia (Acute) Kidney stone (Chronic) Well woman exam with routine gynecological exam (Acute) Trigger finger, right middle finger (Acute) Right carpal tunnel syndrome (Acute) Essential hypertension (Chronic) Hyperlipidemia (Chronic) Osteoporosis (Chronic) Dexa 2022. Fosamax started 2022 Mitral valve regurgitation (Chronic) mild on 2022 echo Primary osteoarthritis of both knees (Chronic) Pes anserinus bursitis of both knees (Chronic) Uterovaginal prolapse (Chronic) Pessary fitted at [facility] [place] 01/15/2010 Diverticulosis of colon (Chronic) Bilateral inguinal hernia (Chronic) Medical History Iron deficiency anemia Abbasi's palsy Surgical History S/P repair of paraesophageal hernia (09/07/23) History of bilateral tubal ligation S/P colonoscopy (04/2023) Highly recommend for Hernia repair Family History Mother , 88 Essential hypertension Heart disease Hyperlipidemia Stroke Type 2 diabetes mellitus Dementia Diabetes Father , 89 Essential hypertension Heart disease Type 2 diabetes mellitus Bladder cancer Sister No problems noted. Son No problems noted. Son No problems noted. Maternal Grandfather Heart disease Maternal Grandmother Heart disease Paternal Grandfather Stroke Paternal Grandmother Stroke Heart disease Social History (Updated 02/03/25 @ 09:51 by Beatris Segal) Smoking/Tobacco Use Status: Never Second Hand Exposure: Yes Smoking risk assessment performed?: Yes Alcohol Intake: current Alcohol Intake frequency: a few times a month Alcohol type: wine Drug use: Never Substance use type: does not use Details: alcohol: t-2,one glass Caregiver/Support person: No Household members: spouse Housing: house Communication Needs: None Do you need help understanding health information?: Never Pets and animals: Yes Pets and animals: dog(s) Sexually active: Yes Do you think of yourself as: straight/heterosexual Current gender identity: female What is your relationship status?: How often do you talk on the phone with friends or family?: twice per week How often do you get together with friends or relatives?: twice per week How often do you attend mormon or adventism services?: 1-3 times per year Do you belong to any clubs or organized social groups?: yes Panel score (0-1 are the most socially isolated patients): 3 Duration: < 15 minutes/day Frequency: 1-2 times per week Leonila/Anabaptism: [employer] Special leonila needs: No Seatbelt use: always Helmet use: No Drive intox or ride w/intox driver guide: No Do you feel safe at home: Yes Do you feel safe in your relationship?: Yes Additional Social history: unable to assess claudia Female Reproductive History Menstrual Menopause type: natural History History 2 Para 2 Hx # Term Pregnancies Multiple births Hx # Pregnancies Ectopic pregnancies AB induced Hx Number of Living Children 2 AB spontaneous
[2025-03-27] MEDS: Ketorolac 15 MG/ML VIAL IVP (10:53)
[2025-03-27] MEDS: Ondansetron 4 MG/2 ML VIAL IVP (10:53)
[2025-03-27] MEDS: Normal Saline 1,000 ML 1000 ML IV (10:54)
[2025-03-27 10:59] LABS: Abs Immature Grans 0.06 10^3/uL (0.0-0.06); HCT 46.7 % (36.0-46.0); HGB 15.7 g/dL (11.2-15.7); Immature Grans % 0.9 %; MCH 31.8 pg (27.0-33.0); MCHC 33.6 % (32.0-36.0); MCV 95 fL (80-95); MPV 9.3 fL (8.0-11.0); Platelet Count 185 10^3/uL (130-400); RBC 4.94 10^6/uL (3.93-5.22); RDW 13.1 % (11.7-14.6); RDW-SD 45.1 fL; WBC 6.96 10^3/uL (4.4-10.8)
[2025-03-27 11:10] LABS: Magnesium 2.0 mg/dL (1.8-2.4)
[2025-03-27 11:16] LABS: ALT 32 U/L (14-59); AST 25 U/L (15-37); Albumin 4.0 g/dL (3.4-5.0); Alkaline Phosphatase 72 U/L (46-116); Anion Gap 8.6 mmol/L (3-11); BUN 20 mg/dL (7-18); Bilirubin, Total 0.7 mg/dL (0.2-1.0); CO2 29.4 mmol/L (21.0-32.0); Calcium 9.2 mg/dL (8.5-10.1); Chloride 104 mmol/L (98-107); Estimated GFR 57.66 (mL/min/1.73m2); Glucose 159 mg/dL (74-106); Lipase 29 U/L (<78); Potassium 3.6 mmol/L (3.5-5.1); Sodium 142 mmol/L (136-145); Total Protein 8.2 g/dL (6.4-8.2)
[2025-03-27] MEDS: Normal Saline - Diluent 50 ML VIAL IJ (11:26)
[2025-03-27] MEDS: Omnipaque 350 MG/ML 100 ML BTL IJ (11:27)
[2025-03-27] MEDS: Normal Saline Flush 10 ML SYR IVP (11:29)
[2025-03-27 12:28] LABS: Glucose Negative (Negative)
[2025-03-27 12:34] LABS: C & S Indicated? No; RBC 20-50 HPF (0-2); WBC 0-2 HPF (0-5)
== END 2025-03-27 13:38 | disposition home or self-care (01) ==
PROVIDERS: Emergency Provider Emergency Medicine; PCP Nurse Practitioner Family
DX: N20.0 Calculus of kidney (principal); K40.90 Unilateral inguinal hernia, without obstruction or gangrene, not specified as recurrent; R10.32 Left lower quadrant pain; M54.50 Low back pain, unspecified; R11.0 Nausea; I10 Essential (primary) hypertension
CPT/HCPCS: 80053; 83690; 96361; 96374; 96375; 99285; 74177; 81003; 81015; 83735; 85025; 99284; J1885; J2405; J3490

== ENCOUNTER 2025-03-29 02:07 | Outpatient (CLI) | payer MEDICARE, SELFPAY ==
--- NOTE | 2025-03-29 09:02 | DI.MAMMO_ITS ---
Exam(s) MAMMO SCREENING EXAM: MAMMO SCREENING CLINICAL HISTORY: screening TECHNIQUE: Mammograms were interpreted according to the usual protocol including computer analysis with CAD system, tomosynthesis and C-view imaging. COMPARISON: 2015 through 2023 FINDINGS: The breasts are composed of scattered fibroglandular densities, Breast Density category B. No suspicious masses or suspicious microcalcifications are seen. Stable nodules in the right breast. No skin thickening or abnormal axillary lymph nodes are seen. There has been no significant change from prior exams. IMPRESSION: BI-RADS Category 2 - Benign Findings Yearly screening mammography is recommended. Breast Density - Category B - There are scattered areas of fibroglandular density. Breast density Category C or D implies that the patient has dense breast tissue. Dense breast tissue can make it harder to find cancer on a mammogram. Dense breast tissue is also associated with an increased risk of breast cancer. This information about the result of the mammogram report was provided to the patient to raise their awareness. Use this report when you speak with the patient about their risks for breast cancer, which includes their family history. At that time, you may recommend additional screening tests (Ultrasound or MRI) as these tests may add significant information. A negative radiographic report should not delay biopsy if a dominant or clinically suspicious mass is present. Up to ten percent of cancers are not identified on mammography. A negative report may reinforce clinical impression. Adenosis and dense breasts may obscure an underlying neoplasm. False positive reports average 6 to 10%. Patient will receive a letter notifying them of these results.
== END 2025-03-29 02:27 ==
PROVIDERS: PCP Nurse Practitioner Family; Visit Provider Obstetrics & Gynecology
DX: Z12.31 Encounter for screening mammogram for malignant neoplasm of breast (principal); R92.323 Mammographic fibroglandular density, bilateral breasts
CPT/HCPCS: 77063; 77067

== ENCOUNTER → 2025-07-17 08:57 | Outpatient (BNVA) | payer MEDICARE, SELFPAY | PROVIDERS: PCP Nurse Practitioner Family; Referring Provider Nurse Practitioner Family; Visit Provider Physician Assistant | DX: M17.0 Bilateral primary osteoarthritis of knee (principal) | CPT/HCPCS: 20610; J1010 ==